=== PATIENT | female | born 1990 | race Caucasian/White ===

== ENCOUNTER 2022-11-04 12:45 | Emergency (ER) | payer OTHER, SELFPAY ==
[2022-11-04 12:46] VITALS: BP 159/106; PULSE 123; RESP 16; TEMP 36.6; O2SAT 97; BMI 25.0
--- NOTE | 2022-11-04 12:51 | NURSING ---
NO OLD EKGS
[2022-11-04 12:56] VITALS: BP 140/91; PULSE 101; RESP 19; O2SAT 98
--- NOTE | 2022-11-04 12:58 | ED.VIS.CHEST ---
HPI History of Present Illness Chief Complaint: Chest Pain [facility] Medical History (Updated 11/04/22 @ 15:[address] Nahum Trivedi, DO) Sliding hiatal hernia Allergy/AdvReac Type Severity Reaction Status Date / Time No Known Allergies Allergy Verified 11/04/22 12:48 Surgical History (Updated 11/04/22 @ 12:55 by Viry Robins) History of repair of ACL Social History Smoking Status: Never smoker EXAM Physical Exam Const Vital Signs: 11/04/22 12:46 11/04/22 12:52 11/04/22 12:56 Temperature 97.9 F Temperature Source Temporal Pulse Rate 123 H 101 H Respiratory Rate 16 19 H Respiratory Effort Normal Respiratory Pattern Normal Blood Pressure 159/106 H 140/91 H Blood Pressure Mean 123 107 Pulse Ox 97 98 Oxygen Delivery Method Room Air Room Air 11/04/22 13:40 11/04/22 13:40 11/04/22 14:00 Temperature Temperature Source Pulse Rate 70 70 Respiratory Rate 17 16 Respiratory Effort Respiratory Pattern Blood Pressure 140/93 H 133/86 H Blood Pressure Mean 108 101 Pulse Ox 98 Oxygen Delivery Method Room Air Room Air Room Air MDM MDM MDM Narrative Medical decision making narrative: HISTORY OF PRESENT ILLNESS: 32-year-old female here with chest pain.States she is been more fatigued dealing with reflux and chest pressure. Notes she felt palpitations at work she noted her heart rate is 130s then she presented to the emergency department. She notes symptoms are worse with lying flat. Notes they are worse after food. States this may be secondary to sliding hiatal hernia. The patient denies recent surgery in the last 4 weeks or immobilization in the last 3 days, denies previous diagnosis of DVT or PE, hemoptysis, unilateral leg swelling or malignancy with treatment the last 6 months. No estrogen use noted. Patient denies sudden onset of pain, no tearing sensation, no migratory symptoms, no new numbness, weakness or loss of sensation. Patient denies family history or personal history of Marfan syndrome or Lázaro-Danlos REVIEW OF SYSTEMS: Pertinent positives: Chest pain, palpitations, fatigue Pertinent negatives: Focal loss of sensation, syncope PHYSICAL EXAM: Nursing triage notes reviewed, Vital signs reviewed Constitutional: please see mdm HENT: MMM Eyes: Pupils equal round and reactive to light, Extraocular muscles intact Neck: No stridor, no JVD, full neck ROM Lungs: Clear to auscultation, No wheezing or rales. No increased work of breathing, no conversational dyspnea, no accessory muscle use, no nasal flaring. No respiratory distress noted Heart: Regular rate and rhythm, No murmurs, No rubs and No gallops, 2+ distal pulses (radial, femoral, posterior tibial) in all extremities Abdomen: Soft, there is no tenderness, rigidity, rebound or guarding, no obvious peritoneal signs, no palpable pulsatile abdominal masses, no auscultated abdominal bruit : No CVAT Extremities: No edema Neuro: No focal neurological deficits, cranial nerves II through XII intact, 5/5 strength in all extremities. Intact sensation to light touch in all extremities, 2+ reflexes bilateral patella tendons. Normal gait. No ataxia. Skin: No rash or lesions noted MEDICAL DECISION MAKING: Chief Complaint: Chest pain External records reviewed: No recent cardiac stress test catheterization or echocardiogram Factors affecting care: none Social determinants of health: none History obtained from others: none Consults: none ALL IMAGES (IF OBTAINED) HAVE BEEN PERSONALLY REVIEWED AND INTERPRETED BY MYSELF. EKG with normal sinus rhythm, normal axis, no intervals, no STEMI MDM Narrative: Patient was initially hypertensive and tachycardic (tachycardia improved without intervention). She was otherwise hemodynamically stable afebrile and nontoxic-appearing. I considered the following differential diagnosis: Arrhythmia, anemia, thyroid dysfunction, ACS, pneumonia, pneumothorax, PE I obtained a broad lab and imaging work-up to further elucidate the etiology the patient complaints. I suspect based on the patient's history of a sliding hiatal hernia pain is worse with lying flat and worse with food at this esophageal pathology. Gave Pepcid, Carafate for symptomatic relief. I also obtained a chest x-ray EKG troponin and basic labs to rule out additional diagnoses including thyroid dysfunction. Initial lab assessment was negative for the above-mentioned differential diagnoses. No clear life-limiting etiology could be identified. Encourage patient to follow-up as an outpatient for stress test and further confirmatory testing. PE less likely given low risk Wells score. Aortic dissection is thought to be less likely given no sudden ripping or tearing pain, migratory pain, palpable pulse inequalities, no focal neurologic deficits concurrent with chest pain. Chance of dissection less than 04/1999. Pericarditis less likely given no pathognomonic EKG changes (no diffuse ST elevations, [place] depressions). GI etiology (i.e. Boerhaave syndrome) less likely given no chest or neck crepitus, no vomiting or forced retching. I completed a HEART Score to screen for Major Adverse Cardiac Event (MACE) in this patient. The evidence indicates that the patient is very low risk for MACE and this is consistent with my clinical intuition. The risk of further workup or hospitalization for MACE is likely higher than the risk of the patient having a MACE. It is, therefore, in the patient?s best interest not to do additional emergent testing or to be hospitalized for MACE at this time. Shared Decision-Making No hospitalization indicated I have discussed with the patient my clinical impression and the result of the HEART Score to screen for MACE, as well as the risks of further testing and hospitalization. The HEART Score shows that the risk for MACE is less than 1%. Although the risk of MACE has not been completely eliminated, the risks of further testing or hospitalization for MACE likely exceed any potential benefit, and the patient agrees with not pursuing further emergent evaluation or hospitalization for MACE at this time. The patient and/or family, caregivers express understanding. The patient and/or family, caregivers agrees with the plan. Shared decision making: I will have a discussion with the patient and or visitors regarding risk/benefits of further testing or admission. They will be made aware of of the risk/benefits inherent in this decision they will be given the opportunity to voice understanding. Total critical care time today provided was at least 0 minutes. This excludes separately billable procedures. Critical care time (if documented) is secondary to the patient having high probability of clinically significant/life threatening deterioration in the patient's condition which required my urgent intervention. Lab Data Attestation: I reviewed the patient's lab results. Lab results narrative: CBC without leukocytosis, severe anemia, no thrombocytopenia. BMP without evidence of significant electrolyte abnormalities, no anion gap, no acute kidney injury. Troponin is negative, no evidence of myocardial ischemia TSH within normal limits Labs: Laboratory Results - last 24 hr 11/04/22 11/04/22 12:55 15:10 WBC 10.4 RBC 4.97 Hgb 14.3 Hct 42.2 MCV 84.9 MCH 28.8 MCHC 33.9 RDW Std Deviation 36.2 RDW Coeff of Eric 11.9 Plt Count 352 MPV 10.3 Immature Gran % (Auto) 0.300 Neut % (Auto) 60.9 Lymph % (Auto) 31.4 [place] % (Auto) 5.8 Eos % (Auto) 0.6 Baso % (Auto) 1.0 Absolute Neuts (auto) 6.4 Absolute Lymphs (auto) 3.27 Nucleated RBC % 0 Sodium 141 Potassium 3.5 Chloride 106 Carbon Dioxide 24.0 Anion Gap 11 BUN 11 Creatinine 1.11 H Estim Creat Clear Calc 67.48 Est GFR (MDRD) Af Amer 73 Est GFR (MDRD) Non-Af 60 BUN/Creatinine Ratio 9.9 L Glucose 103 Calcium 9.9 Troponin I High Sens 10 7 TSH 2.16 Radiography Chest X-Ray - ED: Read by ED Physician Diagnostic Testing: Clinical Impression(s) from Imaging Studies Chest X-Ray 11/04/22 13:00 IMPRESSION: No acute pulmonary process Electronically Signed: Tayo Broussard MD at 13:55 EDT Reading Location ID and State: [address] [place] [address] , Service support , I have personally reviewed the patient's chest x-ray. Chest x-ray is unremarkable for pulmonary edema, pneumothorax, pneumonia or focal cardiopulmonary abnormality. Discharge Plan Triage Chief Complaint: Chest Pain ED Provider: Nahum Trivedi Dx/Rx/DC Orders Clinical Impression: Tachycardia, Chest pain Instructions: Chest Pain [facility] Primary Care Provider: Care Physician,No Primary Referrals: Ricardo Rivas MD [Med Staff - Active Staff] - Activity Restrictions/Additional Instructions: Thank you for trusting us with your care today! Please take Tylenol (2 pills, 650 mg), ibuprofen (2 pills, 400 mg) every 6 hours as needed for pain and fever control. Please return to the emergency department if your symptoms change or worsen. Please follow with your primary care physician for further outpatient evaluation and management. Disposition Disposition: Home, Self Care
--- NOTE | 2022-11-04 13:00 | RAD_ITS ---
STUDY: X-RAY CHEST REASON FOR EXAM: Female, 32 years old. chest pain TECHNIQUE: Single AP portable view of the chest. COMPARISON: None. FINDINGS: EKG leads overlie the chest The lungs are clear and expanded. There is no demonstrated pleural abnormality. Normal size heart. Normal mediastinum and elijah. Normal visualized pulmonary arteries. Normal visualized aortic arch and descending thoracic aorta. Normal visualized thoracic spine. Normal visualized ribs, clavicles, and shoulders. There is no demonstrated abnormality of the visualized soft tissue structures of the upper abdomen. RAD/Chest 1 View (Portable) IMPRESSION: No acute pulmonary process Electronically Signed: Tayo Broussard MD at 13:55 EDT ,
[2022-11-04 13:12] LABS: Absolute Lymphocyte Count 3.27 X10^3/uL (0.83-4.51); Absolute Neutrophil Count 6.4 X10^3/uL (2.0-7.7); Eosinophil# 0.06 X10^3/uL; Eosinophils% 0.6 % (0-5); Hematocrit 42.2 % (37-47); Hemoglobin 14.3 g/dL (12.0-15.0); Lymphocyte # 3.27 X10^3/ul (0.83-4.51); Lymphocyte % 31.4 % (19-41); Mean Corp Hgb Conc 33.9 g/dL (32-36); Mean Corpuscular Hgb 28.8 pg (27.0-32.0); Mean Corpuscular Volume 84.9 fL (81-99); Mean Platelet Vol. 10.3 fl (6.2-12.0); Monocyte% 5.8 % (0-10); NRBC Flagged by Analyzer 0 % (0-5); Neutrophil # 6.35 X10^3/uL (2.7-7.7); Neutrophil % 60.9 % (47-70); Platelet Count 352 K/mm3 (150-450); RBC Distribution Width CV 11.9 % (11.6-14.6); RBC Distribution Width SD 36.2 fl (35.1-43.9); Red Blood Count 4.97 M/mm3 (4.2-5.4); White Blood Count 10.4 K/mm3 (4.4-11.0)
[2022-11-04 13:36] LABS: Anion Gap 11 (5-15); BUN 11 mg/dL (7-18); BUN/Creat Ratio 9.9 RATIO (10-20); Calcium,Total 9.9 mg/dL (8.5-10.1); Chloride 106 mmol/L (98-107); Creatinine, Serum 1.11 mg/dL (0.55-1.02); EST Glomerular Filtration Rate 60 mL/min (>60); Est Glom Filt Rate - Afr Amer 73 mL/min (>60); Estimated Creatinine Clearance 67.48 ml/min; Glucose 103 mg/dL (74-106); Potassium 3.5 mmol/L (3.5-5.1); Sodium Level 141 mmol/L (136-145); Thyroid Stim Hormone (TSH) 2.16 uIU/mL (0.358-3.74); Troponin-I HS (w/2H Reflex) 10 pg/mL (3.0-54.0)
[2022-11-04] MEDS: 0.9% Normal Saline 1,000 ML 1000 ML IV (13:37)
[2022-11-04 13:40] VITALS: BP 140/93; PULSE 70; RESP 17; O2SAT 98
[2022-11-04] MEDS: Sucralfate 1 GM Tablet PO (13:44)
[2022-11-04] MEDS: Famotidine 200 MG/20 ML MDV 20 MG in 0.9% Normal Saline (Pres. free 8 ML 300 MG IV (13:44)
[2022-11-04 14:00] VITALS: BP 133/86; PULSE 70; RESP 16
[2022-11-04 15:08] LABS: Reflex Troponin-HS? (from REC) Y
--- NOTE | 2022-11-04 15:32 | CM.ED ---
Social Work SW introduced self and role to patient. Pt listed as having no PCP; however, patient reports she has a PCP in [facility]. Julissa Ascencio [employer], INFANTRY ASS[employer]ULT[employer]
[2022-11-04 15:43] LABS: Troponin-I HS 7 pg/mL (3.0-54.0)
== END 2022-11-04 15:57 | disposition home or self-care (01) ==
PROVIDERS: Emergency Provider Emergency Medicine; Visit Provider Emergency Medicine
DX: R00.0 Tachycardia, unspecified (principal); R07.9 Chest pain, unspecified
CPT/HCPCS: 71045; 80048; 84443; 84484; 85025; 93005; 96361; 96374; 99284; J7030; A4216; J3490

== ENCOUNTER → 2023-01-04 | Outpatient (CLI) | payer OTHER, SELFPAY ==
--- NOTE | 2023-01-04 11:09 | EKG12_ITS ---
Test Reason : ROUTINE/CP Blood Pressure : / mmHG Vent. Rate : 068 BPM Atrial Rate : 068 BPM P-R Int : 108 ms QRS Dur : 082 ms QT Int : 408 ms P-R-T Axes : 039 064 023 degrees QTc Int : 433 ms Sinus rhythm with short AK Otherwise normal ECG Confirmed by DARCY ALAS, DAYA ([id number]), book editor KEO DRUMMOND ([id number]) on 01/05/2023 1:58:47 PM Referred By: COLIN LOZA Confirmed By:DAYA TAVERAS MD
--- NOTE | 2023-01-04 11:10 | ECHOD_ITS ---
Reason For Study: Palpitations Procedure This was a 2D Doppler, Color Flow transthoracic echocardiogram. Exam performed in department. Left Ventricle Normal LV size. Left ventricular systolic function is normal. The estimated ejection fraction is 63 %. Normal diastology for age. No regional wall motion abnormalities noted. Right Ventricle Normal RV size. Normal systolic function. Atria Normal left atrium. Normal right atrium. Mitral Valve Equivocal mitral valve prolapse. Tricuspid Valve Normal tricuspid valve. Mild tricuspid valve insufficiency. Aortic Valve Trisinus/trileaflet aortic valve. Pulmonic Valve Normal pulmonic valve. Great Vessels Normal aortic root. The pulmonary artery is normal size. Normal inferior vena cava. Pericardium/Pleural No pericardial effusion. MMode/2D Measurements & Calculations LVIDd: 4.8 cm IVSd: 0.75 cm Ao root diam: 2.6 cm LVIDs: 3.0 cm LVPWd: 0.76 cm RVDd: 2.8 cm FS: 37.9 % LAV(MOD-bp): 27.0 ml LVAd ap4: 22.8 cm2 SV(MOD-sp4): 35.7 ml LAV(MOD-bp) Indexed: 15.0 ml/m2 LVLd ap4: 7.6 cm LAV(MOD-sp2): 35.3 ml EDV(MOD-sp4): 57.0 ml LAV(MOD-sp4): 20.6 ml EDV(sp4-el): 58.3 ml LVAs ap4: 12.3 cm2 LVLs ap4: 6.1 cm ESV(MOD-sp4): 21.3 ml ESV(sp4-el): 21.0 ml EF(MOD-sp4): 62.7 % EF(sp4-el): 63.9 % SV(sp4-el): 37.3 ml LA A4 area: 10.7 cm2 LA dimension(2D): 3.2 cm RA A4 area: 7.4 cm2 TAPSE: 2.3 cm Time Measurements MV dec time: 0.15 sec Doppler Measurements & Calculations MV E max brian: 89.1 cm/sec Lat Peak E' Brian: 17.9 cm/sec Med Peak E' Brian: 11.4 cm/sec MV A max brian: 64.4 cm/sec E/E' lat: 5.0 E/E' med: 7.8 MV E/A: 1.4 Ao V2 max: 118.1 cm/sec LV V1 max: 115.2 cm/sec MV dec slope: 609.0 cm/sec2 Ao max P.6 mmHg LV V1 max P.3 mmHg Ao V2 mean: 81.7 cm/sec LV V1 mean P.7 mmHg Ao mean P.1 mmHg LV V1 mean: 76.2 cm/sec Ao V2 VTI: 25.6 cm LV V1 VTI: 24.5 cm AV (velocity ratio): 0.96 PA V2 max: 100.9 cm/sec TR max brian: 208.9 cm/sec TR max P.5 mmHg ECHO/Echo Complete Interpretation Summary Normal LV size. Left ventricular systolic function is normal. The estimated ejection fraction is 63 %. Mild tricuspid valve insufficiency. Normal diastology for age. Ordering Physician: COLIN LOZA Referring Physician: COLIN LOZA Performed By: Amna Trejo, FATEMEH, RVT
== END | disposition home or self-care (01) ==
LOC: CVS 11:08
DX: R00.2 Palpitations (principal)
CPT/HCPCS: 93005; 93306

== ENCOUNTER → 2023-11-01 | Outpatient (CLI) | payer OTHER, SELFPAY ==
[2023-11-01 07:24] LABS: AST(SGOT) 19 U/L (15-37); Alanine Aminotransfer ALT/SGPT 36 U/L (13-56); Albumin, Serum 3.5 g/dL (3.2-5.0); Alkaline Phosphatase 51 U/L (45-117); Anion Gap 5 (5-15); BUN 10 mg/dL (7-18); BUN/Creat Ratio 10.3 RATIO (10-20); Calcium,Total 8.9 mg/dL (8.5-10.1); Chloride 110 mmol/L (98-107); Creatinine, Serum 0.97 mg/dL (0.55-1.02); EST Glomerular Filtration Rate 69 mL/min (>60); Est Glom Filt Rate - Afr Amer 84 mL/min (>60); Globulin 3.4 g/dL (2.2-4.2); Glucose 95 mg/dL (74-106); Potassium 3.9 mmol/L (3.5-5.1); Protein, Total 6.9 g/dL (6.4-8.2); Sodium Level 138 mmol/L (136-145); Thyroid Stim Hormone (TSH) 2.15 uIU/mL (0.358-3.74)
== END | disposition home or self-care (01) ==
PROVIDERS: Visit Provider Nurse Practitioner Family
DX: E04.9 Nontoxic goiter, unspecified (principal); K76.0 Fatty (change of) liver, not elsewhere classified
CPT/HCPCS: 36415; 80053; 84439; 84443

== ENCOUNTER → 2024-02-09 | Outpatient (CLI) | payer OTHER, SELFPAY ==
--- NOTE | 2024-02-09 07:53 | US_ITS ---
STUDY: ABDOMINAL ULTRASOUND - RIGHT UPPER QUADRANT; ELASTOGRAPHY REASON FOR VISIT: Female, 33 years old. Fatty infiltration of the liver. TECHNIQUE: Ultrasound evaluation of the right upper quadrant was performed with real-time and static hansen-scale imaging. Point quantification shear wave elastography was performed (Ovelin). TECHNICAL QUALITY: Adequate. COMPARISON: None. FINDINGS: Liver: The liver measures 13.8 cm. There is increased echogenicity consistent with fatty infiltration. The bile ducts are within normal limits. There is hepatic color flow. The direction of portal flow is hepatopetal. There is no demonstrated mass lesion. Median liver stiffness measured 4.8 kPa. Gallbladder: Normal distended gallbladder. The gallbladder wall measures 2 mm. There is a negative sonographic Vann''s sign. There is no pericholecystic fluid. There are no gallstones. Sludge is seen within the gallbladder lumen. Common Bile Duct (C.B.D.): The common bile duct measures 2 mm. Pancreas: There is normal echogenicity of the visualized pancreas. There is no demonstrated pancreatic mass or cyst. Right Kidney: Normal size of the right kidney. The right kidney measures 10 cm x 5.2 cm x 4.1 cm. Normal renal cortex. The right cortex measures 1.5 cm. There is no demonstrated renal mass or cyst. There is no right hydronephrosis. US/ABD Limited w/ Elastography IMPRESSION: 1. Liver stiffness measures 4.8 kPa compatible with F0-F1 (Normal to mild liver fibrosis) Metavir score. 2. Sludge is seen within the gallbladder lumen. Electronically Signed: Zacarias Carney MD at 10:03 EDT ,
== END | disposition home or self-care (01) ==
LOC: US 07:52
PROVIDERS: Referring Provider Internal Medicine; Visit Provider Internal Medicine
DX: R79.89 Other specified abnormal findings of blood chemistry (principal); K76.0 Fatty (change of) liver, not elsewhere classified
CPT/HCPCS: 76705; 76981

== ENCOUNTER → 2024-02-14 | Outpatient (CLI) | payer OTHER, SELFPAY ==
--- OUTSIDE RECORDS SUMMARY | 2024-02-14 15:18 | XMS RPT_ITS | CCD ---
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 01-18-2008 Hepatitis B vaccination HEP B VACCINE (3 of 3 - 3-dose series) [facility] Start: 2007 Tetanus vaccination TETANUS [facility] Start: 2004 HIV screening HIV SCREENING DISCUSSI ON [facility] Start: 2001 Adolescent depressio n screening assessment Depression Screening (PHQ9) [facility] Start: 1994 COVID-19 VACCINE (1) COVID-19 VACCIN E (1) [facility] Start: 1992 History and physical examination, annual for health maintenance Wellness Visit [facility] Start: 1989 COVID-19 VACCINE (#1) COVID-19 VACCI NE (#1) [facility] Start: 1989 Hepatitis C antibody , confirmatory test HEPATITIS C VIRUS SCREENING [facility] Start: 1989 Hepatitis C screening HEPATITI S C VIRUS SCREENING [facility] Start: 1989 Screening for malignant neoplasm of cervix Pap Smear [facility] Start: 1989 Tetanus vaccination [facility] SURGICAL PATHOLOGY REQUEST SURGICAL PATHOLOGY REQUEST Surg Path Routine Gastroesophageal reflux disease without esophagitis Release Upon Ordering for 1 Occurrences starting 01/13/2023 [facility] Comment on above: Release Upon Orderin g for 1 Occurrences starting 01/13/2023 Immunizations Immunization Date Immunization Notes Care Provider Jennifer maddox 01-27-2023 influenza virus vaccine, unspecified formulation Myron Anguiano MD Work Phone: [facility] 01-31-2021 influenza virus vaccine, unspecified formulation Esme Horan SENIOR VICE PRESIDENT-CHURN DRILLER HELPER Work Phone: [facility] 05-16-2020 Moderna SARS-CoV-2 Vaccination Evita Lillie [facility] Comment on above: Result Comment: 2020: [id number] 04-18-2020 Moderna SARS-CoV-2 Vaccination Leslie Kimcaroline [facility] Comment on above: Result Comment: 2020: VIS DATE: 03/04/2020 01-17-2018 influenza virus vaccine, unspecified formulation LUZMARIA LOZA SENIOR VICE PRESIDENT-CHURN DRILLER HELPER [facility] 11-23-2007 hepatitis B pediatri c vaccine LUZMARIA LOZA SENIOR VICE PRESIDENT-CHURN DRILLER HELPER [facility] 09-13-2007 hepatitis B pediatri c vaccine LUZMARIA LOZA SENIOR VICE PRESIDENT-CHURN DRILLER HELPER [facility] 06-04-2000 measles/mumps/rubell a virus vaccine LUZMARIA LOZA SENIOR VICE PRESIDENT-CHURN DRILLER HELPER [facility] 07-22-1994 diphtheria, tetanus toxoids and acellular pertussis vaccine LUZMARIA LOZA SENIOR VICE PRESIDENT-CHURN DRILLER HELPER [facility] 07-22-1994 poliovirus vaccine, inactivated LUZMARIAGUNJAN LOZA SENIOR VICE PRESIDENT-CHURN DRILLER HELPER [facility] 12-12-1990 diphtheria, tetanus toxoids and acellular pertussis vaccine LUZMARIAGUNJAN LOZA SENIOR VICE PRESIDENT-CHURN DRILLER HELPER [facility] 12-12-1990 haemophilus influenz ae type b vaccine, PRP-T conjugate LUZMARIA LOZA SENIOR VICE PRESIDENT-CHURN DRILLER HELPER [facility] 12-12-1990 poliovirus vaccine, inactivated LUZMARIA LOZA SENIOR VICE PRESIDENT-CHURN DRILLER HELPER [facility] 08-23-1990 measles/mumps/rubell a virus vaccine LUZMARIAGUNJAN LOZA SENIOR VICE PRESIDENT-CHURN DRILLER HELPER [facility] 1989 diphtheria, tetanus toxoids and acellular pertussis vaccine LUZMARIAGUNAJN LOZA SENIOR VICE PRESIDENT-CHURN DRILLER HELPER [facility] 1989 diphtheria, tetanus toxoids and acellular pertussis vaccine LUZMARIAGUNJAN LOZA SENIOR VICE PRESIDENT-CHURN DRILLER HELPER [facility] 1989 poliovirus vaccine, inactivated LUZMARIAGUNJAN LOZA SENIOR VICE PRESIDENT-CHURN DRILLER HELPER [facility] 1989 diphtheria, tetanus toxoids and acellular pertussis vaccine, unspecified formulation LUZMARIAGUNJAN LOZA SENIOR VICE PRESIDENT-CHURN DRILLER HELPER [facility] 1989 poliovirus vaccine, inactivated LUZMARIAGUNJAN LOZA SENIOR VICE PRESIDENT-CHURN DRILLER HELPER [facility] Payers Date Payer Category Payer [employer] others[employer] [id number] 2022 [employer] [id number] 2022 [facility] [id number] 2021 [employer] ( [employer] others) [facility] [id number] 2021-Present [address] [place] [address] [id number] 2021 [employer] ( and others) [id number] 2019 Unknown [facility] xxxxxxxxx 2019-Present xxxxxxxxx [id number] 2017 Unknown [id number] 1989 Unknown [id number] [id number] .2.903 1989 Unknown [id number] [id number] .2.900 1989 Unknown [id number] 2.16.840.1.912087.3.579 .2.903 1989 Unknown [id number] [id number] .2.627 1989 Unknown [id number] [id number] .2.983 1989 Unknown [id number] [id number] .2.983 1989 Unknown [id number] 2.16.840.1.810529.3.579 .2.983 1989 Unknown [id number] [id number] .2.983 1989 Unknown [id number] 2.16.840.1.505483.3.579 .2.983 1989 Unknown [id number] [id number] .2.983 1989 Unknown [id number] [id number] .2.983 Social History Date Type Detail Facility Start: 05-18-2019 Tobacco smoking stat us HIIS Unknown if ever smoked [facility] Start: 1989 Sex Assigned At Not on file [facility] Exposure to SARS-CoV -2 (event) Yes [facility] Exposure to SARS-CoV -2 (event) Unable to assess [facility] Start: 02-03-2021 End: 12-17-2022 Tobacco smoking status NHIS Never smoked tobacco [facility] Start: 02-03-2021 End: 12-17-2022 Tobacco use and exposure Smokeless tobacco non-user [facility] Start: 05-26-2021 End: 01-11-2024 Alcohol intake Current drinker of alcohol (finding) [facility] Start: 02-03-2021 History SDOH Alcohol Comment occ [facility] Sex Assigned At Female [facility] Start: 12-17-2022 End: 01-03-2024 History of Social function [facility] Start: 12-17-2022 End: 01-03-2024 Tobacco use panel [facility] Clinical Notes 05-26-2021 to 01-18-2024 Tomasz Carrero [...] Myron Anguiano MD documented in this encounter [facility] 01-11-2024 History of Present illness Narrative Associated [...] Myron Anguiano MD documented in this encounter [facility] 01-03-2024 History of Present illness Narrative Chief [...] Myron Anguiano MD documented in this encounter [facility] 10-28-2023 Evaluation + Plan note Diagnostic Tests PendingHPV Screen, DNA Probe 10/28/23 Future Scheduled TestsThyroid Stimulating Hormone 10/28/23Free T4 10/28/23Complete Metabolic Panel 10/28/23US Elastography Liver Only 10/28/23 [facility] 09-02-2023 History of Present illness Narrative Nurse [...] Following IV injection of 4.2 mCi of [id number], anterior imaging of the abdomen was acquired [...] a cholecystectomy Laura Story MD General Surgery [place] [address] Office - [phone] Fax - [phone] documented in this encounter [facility] 02-04-2023 History of Present illness Narrative Nurse [...] are completed. Laura Story MD General Surgery [place] [address] Office - [phone] Fax - [phone] documented in this encounter [facility] 01-25-2023 History of Present illness Narrative Associated [...] Myron Anguiano MD documented in this encounter [facility] 01-19-2023 History of Present illness Narrative Associated [...] Myron Anguiano MD documented in this encounter [facility] 01-13-2023 Nurse Note Patient out of bathroom; [...] Patient to recovery bay 4, family at [facility]; patient sedated, not responding to stimuli at this time; skin pink, warm and dry, respirations easy and unlabored; no evidence of pain noted; call light with patient and side rails up x 2. documented in this encounter [facility] 01-13-2023 Nurse Surgical operation note Patient out of bathroom; ambulates to wheelchair for discharge. [facility] 01-13-2023 Nurse Surgical operation note Patient ambulates slowly and steadily to bathroom. Instructed to use red call cord if needs assistance. Voices understanding. T [facility] 01-13-2023 Nurse Surgical operation note IV discontinued with angiocath intact; no redness or edema noted a site; pressure drsg applied to site; patient tolerated procedure well and is getting dressed for discharge home. T [facility] 01-13-2023 Nurse Surgical operation note Dr. Story returns to bedside; spending time speaking with patient and patient's her spouse, provides post procedure diagnosis, treatment provided and treatment recommended, answering questions and reviewing photos. T [facility] 01-13-2023 Nurse Surgical operation note Patient assisted [...] stop back in and speak with patient. [facility] 01-13-2023 Nurse Surgical operation note Patient alert, HOB elevated; patient taking nourishment of starry soda and peanut butter crackers, per patient request; patient denies difficulty swallowing, pain or nausea. [facility] 01-13-2023 Nurse Surgical operation note Patient more alert, opens eyes to name and answers questions appropriately. [facility] 01-13-2023 Nurse Surgical operation note Dr. Story here speaking with patient's family, provides post procedure diagnosis, treatment provided and treatment recommended. [facility] 01-13-2023 Nurse Surgical operation note Patient to recovery bay 4, family at [facility]; patient sedated, not responding to stimuli at this time; skin pink, warm and dry, respirations easy and unlabored; no evidence of pain noted; call light with patient and side rails up x 2. [facility] 01-13-2023 History and physical note ENDOSCOPIC PREPROCEDURE HISTORY AND PHYSICAL HISTORY OF PRESENT ILLNESS: Kinjal Hutchinson is a 32 y.o. female seen in the pre-procedure area at [facility]. The indication for endoscopic evaluation includes: [...] using Monitored Anesthesia Care. Laura Story MD [facility] 01-13-2023 History and physical note ENDOSCOPIC PREPROCEDURE HISTORY AND PHYSICAL HISTORY OF PRESENT ILLNESS: Kinjal Hutchinson is a 32 y.o. female seen in the pre-procedure area at [facility]. The indication for endoscopic evaluation includes: [...] Laura Story MD documented in this encounter [facility] 01-13-2023 Nurse Note Clip down scope to bx site. 1 clip deployed. [facility] 01-13-2023 Miscellaneous Notes Clip down scope to bx site. 1 clip deployed. Biopsy forceps down scope. See anesthesia record for vital signs and meds given during the procedure. documented in this encounter [facility] 01-13-2023 Nurse Note Biopsy forceps down scope. [facility] 01-13-2023 Nurse Note See anesthesia record for vital signs and meds given during the procedure. [facility] 01-12-2023 History of Present illness Narrative Associated [...] Myron Anguiano MD documented in this encounter [facility] 01-05-2023 History of Present illness Narrative Chief [...] Myron Anguiano MD documented in this encounter [facility] 12-17-2022 History of Present illness Narrative Nurse [...] Nausea/Vomiting. denies Constipation/Diarrhea. documented in this encounter [facility] 12-17-2022 Instructions Parisa Armijo LPN - 12/17/2022 1:00 PM EDT EGD INSTRUCTIONS Your EGD is scheduled at [facility] on Wednesday01/13/23. The hospital will call [...] cannot be sent through Care Everywhere.EGD ([facility]) ([facility])documented in this encounter [facility] 01-13-2022 History of Present illness Narrative Associated [...] Patient was seen and evaluated with the CHURN DRILLER HELPER or AT/OTC at today's visit. I performed all essential elements of the history and physical exam at today's visit. I have confirmed the diagnosis at today's visit. I have determined the plan of care for today's visit. Please refer to the CHURN DRILLER HELPER or AT/OTC's note for further details from [...] prepped with alcohol. documented in this encounter [facility] 01-05-2022 History of Present illness Narrative Associated [...] prepped with alcohol. documented in this encounter [facility] 12-29-2021 History of Present illness Narrative Chief [...] Myron Anguiano MD documented in this encounter [facility] 06-16-2021 History of Present illness Narrative Chief [...] prepped with alcohol. documented in this encounter [facility] 06-02-2021 History of Present illness Narrative Patient was seen and evaluated with the CHURN DRILLER HELPER or AT/OTC at today's visit. I performed all essential elements of the history and physical exam at today's visit. I have confirmed the diagnosis at today's visit. I have determined the plan of care for today's visit. Please refer to the CHURN DRILLER HELPER or AT/OTC's note for further details from [...] prepped with alcohol. documented in this encounter [facility] 05-26-2021 History of Present illness Narrative Chief [...] or concerns meantime. documented in this encounter [facility] Evaluation + Plan note Future Appointments Appointment Date:01/24/2022 03:00:00 PM Scheduled Provider: Location:[facility] Appointment Type:US Thyroid Future Scheduled TestsUS Thyroid 01/24/22 [facility] Evaluation note Diagnosis Primary osteoarthritis of left knee- Primary Primary localized osteoarthrosis, lower leg [facility] Primary osteoarthritis of left knee- Primary Primary localized osteoarthrosis, lower leg [facility] Diagnosis Primary osteoarthritis of left knee- Primary Primary localized osteoarthrosis, lower leg [facility] Diagnosis Gastroesophageal reflux disease without esophagitis- Primary Esophageal reflux [facility] Diagnosis Primary osteoarthritis of left knee- Primary Primary localized osteoarthrosis, lower leg [facility] Diagnosis Gastroesophageal reflux disease without esophagitis Esophageal reflux [facility] Diagnosis Primary osteoarthritis of left knee- Primary Primary localized osteoarthrosis, lower leg [facility] Diagnosis Primary osteoarthritis of left knee- Primary Primary localized osteoarthrosis, lower leg [facility] Diagnosis Abdominal pain, acute Abdominal pain, unspecified site [facility] Diagnosis Abdominal pain, acute Abdominal pain, unspecified site [facility] Diagnosis Hepatic steatosis- Primary Other chronic nonalcoholic liver disease Gallbladder sludge Calculus of gallbladder without mention of cholecystitis or obstruction [facility] Narrative No data available for this section [facility] Hospital Discharge instructions No data available for this section [facility] Progress note No data available for this section [facility] Summary Purpose Family History No Family History Records FoundNo Family History Records FoundNo Family History Records FoundNo Family History Records FoundNo Family History Records Found No data available for this section No Family History Records FoundNo Family History Records Found Advance Directives Documents on File Type Date Recorded 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 The patient reports no mechanical symptoms. She [...] medications, and allergies werereviewed today in the [facility] system and confirmed. Social History: Social History [...] US ABDOMEN RUQ/LIVER/GB Laura Story MD [address] [place] [id number] Referral ID Status Reason Start Date Expiration Date V isits Requested Visits Authorized [id number] New Request 02/04/2023 02/29/2024 1 1 Specialty Diagnoses / Procedures Referred By Contac t Referred To Contact Diagnoses Abdominal pain, acute Procedures NUC HEPATOBILIARY WITH EJECTION FRACTION [facility] GB W/PHARMA INTERVENJ Laura Story MD [address] [place] [address] Referral ID Status Reason Start Date Expiration Date V isits Requested Visits Authorized [id number] New Request 02/04/2023 02/29/2024 1 1 Specialty Diagnoses / Procedures Referred By Contac t Referred To Contact Diagnoses Gastroesophageal reflux disease without esophagitis Procedures DIAGNOSTIC UPPER ENDOSCOPY AZ ESOPHAGOGASTRODUODENOSCOPY TRANSORAL DIAGNOSTIC Laura Story MD [address] [place] [address] Referral ID Status Reason Start Date Expiration Date Visits Re quested Visits Authorized [id number] Closed 12/18/2022 01/12/2024 1 1 Additional Source Comments INFORMATION SOURCE (unrecogn ized section and content) DATE CREATED AUTHOR 10/11/[address] [facility] DATE CREATED AUTHOR AUTHOR'S ORGANIZ ATION 05/16/2019 [facility] DATE CREATED AUTHOR AUTHOR'S ORGANIZ ATION 05/17/2019 [facility] DATE CREATED AUTHOR AUTHOR'S ORGANIZ ATION 02/19/2021 [facility] DATE CREATED AUTHOR AUTHOR'S ORGANIZ ATION 01/21/2022 [facility] DATE CREATED AUTHOR AUTHOR'S ORGANIZ ATION 11/20/2023 [facility] ([place] DATE CREATED AUTHOR AUTHOR'S ORGANIZ ATION 01/31/2024 [facility] Reason for Visit (unrecogniz ed [...] disease without esophagitis Procedures DIAGNOSTIC UPPER ENDOSCOPY AZ ESOPHAGOGASTRODUODENOSCOPY TRANSORAL DIAGNOSTIC Laura Story MD [address] [place] [address] Referral ID Status Reason Start Date Expiration Date Visits Re quested Visits Authorized [id number] Closed 12/18/2022 01/12/2024 1 1 Reason Comments [...] US ABDOMEN RUQ/LIVER/GB Laura Story MD [address] [place] [phone] Referral ID Status Reason Start Date Expiration Date Visits Re quested Visits Authorized [id number] Closed 02/04/2023 02/29/2024 1 1 Specialty Diagnoses / Procedures Referred By Contac t Referred To Contact Diagnoses Abdominal pain, acute Procedures NUC HEPATOBILIARY WITH EJECTION FRACTION [place] [facility]PAT[facility] GB W/PHARMA INTERVENJ Laura Story MD [address] [place] [address] Referral ID Status Reason Start Date Expiration Date Visits Re quested Visits Authorized [id number] Closed 02/04/2023 02/29/2024 1 1 Reason Comments [...] Care Teams (unrecognized sec tion and content) Tree Deadener Relationship Specialty Start Date End Date Luzmaria Loza CNP [address] [place] [place] [phone] PCP - General Nurse Practitioner - Family 01/31/21 Tree Deadener Relationship Specialty Start Date End Date Luzmaria Loza CNP [address] [place] [place] [phone] PCP - General Nurse Practitioner - Family 01/31/21 Tree Deadener Relationship Specialty Start Date End Date Luzmaria Loza CNP [address] [place] [id number] PCP - General Nurse Practitioner - Family 01/31/21 Tree Deadener Relationship Specialty Start Date End Date Luzmaria Loza CNP [address] [place] [id number] PCP - General Nurse Practitioner - Family 01/31/21 Tree Deadener Relationship Specialty Start Date End Date Luzmaria Loza CNP [address] [place] [id number] PCP - General Nurse Practitioner - [facility] 01/31/21 Tree Deadener Relationship Specialty Start Date End Date Luzmaria Loza CNP [address] [place] [id number] PCP - General Nurse Practitioner - [facility] 01/31/21 Tree Deadener Relationship Specialty Start Date End Date Luzmaria Loza CNP [address] [place] [id number] PCP - General Nurse Practitioner - [facility] 01/31/21 Tree Deadener Relationship Specialty Start Date End Date Luzmaria Loza CNP [address] [place] [id number] PCP - General Nurse Practitioner - [facility] 01/31/21 Tree Deadener Relationship Specialty Start Date End Date Luzmaria Loza CNP [address] [place] [phone] PCP - General Nurse Practitioner - Family 01/31/21 Tree Deadener Relationship Specialty Start Date End Date Luzmaria Loza CNP [address] [place] [id number] PCP - General Nurse Practitioner - Family 01/31/21 Tree Deadener Relationship Specialty Start Date End Date Luzmaria Loza CNP [address] [place] [phone] PCP - General Nurse Practitioner - Family 01/31/21 Care Team (unrecognized sect ion and content) Care Team Personnel Name: LUZMARIA LOZA APRN-CONY Position: P4 Advanced Practice Nurse Med Service: Active Provider Member Role: Primary Care Physician Address: Address: [address] [facility] [address] [place], [place] [address] Care Team Related Persons Name: MIGUEL ÁNGEL HUTCHINSON Address: [address] [phone] FOR RECORDS PERTAINING TO PATIENTS WHO ARE [...] BE BASED ON THE PRIMARY CLINICAL RECORDS. [facility] [employer] provides no warranty or guarantee of the accuracy or completeness of information in this document.
== END | disposition home or self-care (01) ==
LOC: PSN 12:43
PROVIDERS: PCP Nurse Practitioner Family; Referring Provider Internal Medicine Cardiovascular Disease; Visit Provider Internal Medicine Cardiovascular Disease
DX: R00.2 Palpitations (principal); R00.1 Bradycardia, unspecified; I49.3 Ventricular premature depolarization
CPT/HCPCS: 93225; 93226

== ENCOUNTER → 2024-02-14 | Outpatient (CLI) | payer OTHER, SELFPAY ==
[2024-02-14 13:03] LABS: Absolute Lymphocyte Count 2.46 X10^3/uL (0.83-4.51); Absolute Neutrophil Count 4.2 X10^3/uL (2.0-7.7); Basophil# 0.09 X10^3/uL; Basophil% 1.2 % (0-1); Eosinophil# 0.07 X10^3/uL; Eosinophils% 0.9 % (0-5); Hematocrit 41.3 % (37-47); Hemoglobin 13.8 g/dL (12.0-15.0); Lymphocyte # 2.46 X10^3/ul (0.83-4.51); Lymphocyte % 33.3 % (19-41); Mean Corp Hgb Conc 33.4 g/dL (32-36); Mean Corpuscular Hgb 27.9 pg (27.0-32.0); Mean Corpuscular Volume 83.6 fL (81-99); Mean Platelet Vol. 10.8 fl (6.2-12.0); Monocyte# 0.56 X10^3/uL; Monocyte% 7.6 % (0-10); NRBC Flagged by Analyzer 0 % (0-5); Neutrophil % 56.9 % (47-70); Platelet Count 329 K/mm3 (150-450); RBC Distribution Width SD 36.4 fl (35.1-43.9); Red Blood Count 4.94 M/mm3 (4.2-5.4); White Blood Count 7.4 K/mm3 (4.4-11.0)
[2024-02-14 13:33] LABS: Anion Gap 8 (5-15); BUN 11 mg/dL (7-18); BUN/Creat Ratio 12.7 RATIO (10-20); Calcium,Total 9.3 mg/dL (8.5-10.1); Chloride 107 mmol/L (98-107); Creatinine, Serum 0.86 mg/dL (0.55-1.02); EST Glomerular Filtration Rate 79 mL/min (>60); Est Glom Filt Rate - Afr Amer 96 mL/min (>60); Glucose 100 mg/dL (74-106); Potassium 3.8 mmol/L (3.5-5.1); Sodium Level 140 mmol/L (136-145)
--- OUTSIDE RECORDS SUMMARY | 2024-02-14 14:35 | XMS RPT_ITS | CCD ---
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 MG/2ML Patient tolerance: patient tolerated the procedure well with no immediate complications Consent: Consent was obtained prior to the procedure after discussion of the risks, benefits and alternatives, and expected outcomes were discussed with the patient. The possibilities of reaction to medication, bleeding, infection, the need for additional procedures, failure to diagnosis a condition, and creating a complication requiring operation were discussed with the patient. The patient concurred with the proposed plan, giving consent. Preparation: Patient was prepped in the usual sterile fashion. The patient was prepped with alcohol. [facility] LARGE JOINT/BURSA INJECTION AND/OR ASPIRATION: L kneeon 01-19-2023 Tomasz Carrero ATC 02/03/2023 4:24 PM LARGE JOINT/BURSA INJECTION AND/OR ASPIRATION: L knee Date/Time: 01/19/2023 11:10 AM Performed by: Myron Anguiano MD Authorized by: Myron Anguiano MD Supporting Documentation Indications: pain and osteoarthritis Procedure Details: Location: knee - L knee Local Anesthetic: ethyl chloride (cold spray) Needle size: 22 G Approach: anterolateral Medication Verification: I have personally verified and performed the final check of the medication(s) used in this procedure prior to administration. The following items were included during the verification process for medication(s) administered: drug name, strength, volume, expiration, physical integrity and appearance of the medication(s). Medications administered: 20 mg Sodium Hyaluronate (Viscosup) 20 MG/2ML Patient tolerance: patient tolerated the procedure well with no immediate complications Consent: Consent was obtained prior to the procedure after discussion of the risks, benefits and alternatives, and expected outcomes were discussed with the patient. The possibilities of reaction to medication, bleeding, infection, the need for additional procedures, failure to diagnosis a condition, and creating a complication requiring operation were discussed with the patient. The patient concurred with the proposed plan, giving consent. Preparation: Patient was prepped in the usual sterile fashion. The patient was prepped with alcohol. [facility] LARGE JOINT/BURSA INJECTION AND/OR ASPIRATION: L kneeon 01-16-2023 Radiology Study observation (narrative) [facility] DIAGNOSTIC UPPER ENDOSCOPYon 01-13-2023 [facility] Patient Name: Kinjal Hutchinson Procedure Date: 01/13/2023 9:22 AM Date of : 1990 Admit Type: Outpatient Age: 32 Room: Procedure Room #2 Gender: Female Note Status: Finalized Attending MD: Laura Story MD, [id number] Instrument Name: [id number] Procedure: Upper GI endoscopy Attending Participation: I personally performed the entire procedure. Indications: Heartburn, Suspected esophageal reflux, Abnormal CT of the GI tract Providers: Laura Story MD Referring MD: LUZMARIA LOZA CNP Complications: No immediate complications. Estimated blood loss: Minimal. Estimated Blood Loss: Estimated blood loss was minimal. Medicines: See the Anesthesia note for documentation of the administered medications Procedure: Pre-Anesthesia Assessment: - Prior to the procedure, a History and Physical was performed, and patient medications and allergies were reviewed. The risks and benefits of the procedure and the sedation options and risks were discussed with the patient. All questions were answered and informed consent was obtained. Patient identification and proposed procedure were verified by the physician, the nurse, the automobile insurance claim examiner and the hydro technician in the pre-procedure area in the endoscopy suite. Mental Status Examination: normal. Airway Examination: Mallampati Class II (the uvula but not tonsillar pillars visualized). Respiratory Examination: clear to auscultation. CV Examination: normal. Prophylactic Antibiotics: The patient does not require prophylactic antibiotics. Prior Anticoagulants: The patient has taken no anticoagulant or antiplatelet agents. ASA Grade Assessment: II - A patient with mild systemic disease. After reviewing the risks and benefits, the patient was deemed in satisfactory condition to undergo the procedure. The anesthesia plan was to use moderate sedation / analgesia (conscious sedation). Immediately prior to administration of medications, the patient was re-assessed for adequacy to receive sedatives. The physical status of the patient was re-assessed after the procedure. After obtaining informed consent, the endoscope was passed under direct vision. Throughout the procedure, the patient's blood pressure, pulse, and oxygen saturations were monitored continuously. CO2 was used. The Endoscope was introduced through the mouth, and advanced to the second part of duodenum. The upper GI endoscopy was accomplished without difficulty. The patient tolerated the procedure well. Findings: The Z-line was regular and was found 41 cm from the incisors. Bilious fluid was found on the greater curvature of the stomach. Localized mild inflammation with hemorrhage characterized by erythema was found in the prepyloric region of the stomach. Biopsies were taken with a cold forceps for Helicobacter pylori testing. The second portion of the duodenum was normal. The gastroesophageal flap valve was visualized endoscopically and classified as Hill Grade II (fold present, opens with respiration). Impression: - Z-line regular, 41 cm from the incisors. - Bilious gastric fluid. - Chronic bile gastritis with hemorrhage. Biopsied. - Normal second portion of the duodenum. - Gastroesophageal flap valve classified as Hill Grade II (fold present, opens with respiration). Recommendation: - Patient has a contact number available for emergencies. The signs and symptoms of potential delayed complications were discussed with the patient. Return to normal activities tomorrow. Written discharge instructions were provided to the patient. - Written discharge instructions were provided to (more content not included)... LAB, [facility] Radiology Study observation (narrative) [facility] HCG ( test) Ql (U)o n 01-13-2023 HCG.beta subunit [Moles/Vol] Negative [facility] Comment on above: Lot: [id number]; EXP : 2023-12-24; [facility]AR[facility]INT/BURSA INJECTION AND/OR ASPIRATION: [place] kneemelinda 01-12-2023 Tomasz Carrero, AMISHA 01/16/2023 10:12 AM LARGE JOINT/BURSA INJECTION AND/OR ASPIRATION: L knee Date/Time: 01/12/2023 11:10 AM Performed by: Myron Anguiano MD Authorized by: Myron Anguiano MD Supporting Documentation Indications: pain and osteoarthritis Procedure Details: Location: knee - L knee Local Anesthetic: ethyl chloride (cold spray) Needle size: 22 G Approach: anterolateral Medication Verification: I have personally verified and performed the final check of the medication(s) used in this procedure prior to administration. The following items were included during the verification process for medication(s) administered: drug name, strength, volume, expiration, physical integrity and appearance of the medication(s). Medications administered: 20 mg Sodium Hyaluronate (Viscosup) 20 MG/2ML Patient tolerance: patient tolerated the procedure well with no immediate complications Consent: Consent was obtained prior to the procedure after discussion of the risks, benefits and alternatives, and expected outcomes were discussed with the patient. The possibilities of reaction to medication, bleeding, infection, the need for additional procedures, failure to diagnosis a condition, and creating a complication requiring operation were discussed with the patient. The patient concurred with the proposed plan, giving consent. Preparation: Patient was prepped in the usual sterile fashion. The patient was prepped with alcohol. [facility] LARGE JOINT/BURSA INJECTION AND/OR ASPIRATION: Davidson kneeon 01-27-2022 Radiology Study observation (narrative) [facility] LABORATORYOrdered By: Brit Sosa on 01-16-2022 Albumin BCP dye [Mass/Vol] 4.1 G/dL Invalid Interpretation Code 3.5 - 5.0 G/dL AO ADM SS Albumin/Globulin [Mass ratio] 1.2 {ratio} Invalid Interpretation Code 1.1 - 2.5 ratio AO ADM SS ALP [Catalytic activity/Vol] 60 U/L Invalid Interpretation Code 40 - 135 U/L AO ADM SS ALT With P-5'-P [Catalytic activity/Vol] 21 U/L Invalid Interpretation Code 14 - 59 U/L AO ADM SS AST With P-5'-P [Catalytic activity/Vol] 19 U/L Invalid Interpretation Code 10 - 40 U/L AO ADM SS Bilirubin [Mass/Vol] 0.3 mg/dL Invalid Interpretation Code 0.2 - 1.0 mg/dL AO ADM SS Calcium [Mass/Vol] 9.7 mg/dL Invalid Interpretation Code 8.4 - 10.2 mg/dL AO ADM SS Chloride [Moles/Vol] 103 mmol/L Invalid Interpretation Code 98 - 107 mmol/L AO ADM SS Cholesterol [Mass/Vol] 159 mg/dL Invalid Interpretation Code 0 - 200 mg/dL AO ADM SS Cholesterol in HDL [Mass/Vol] 74 mg/dL Invalid Interpretation Code 40 - 60 mg/dL AO ADM SS Cholesterol in LDL [Mass/Vol] 52 mg/dL Invalid Interpretation Code 0 - 130 mg/dL AO ADM SS CO2 [Moles/Vol] 29 mmol/L Invalid Interpretation Code 22 - 29 mmol/L AO ADM SS Creatinine [Mass/Vol] 0.90 mg/dL Invalid Interpretation Code 0.55 - 1.02 mg/dL AO ADM SS Electrolyte Balance 10.0 mEq/L Invalid Interpretation Code 4.0 - 15.0 mEq/L AO ADM SS Free T4 [Mass/Vol] 1.06 ng/dL Invalid Interpretation Code 0.76 - 1.46 ng/dL AO ADM SS Globulin 3.4 G/dL Invalid Interpretation Code AO ADM SS Glucose [Mass/Vol] 67 mg/dL Invalid Interpretation Code 70 - 105 mg/dL AO ADM SS HbA1c (Bld) [Mass fraction] 5.2 % Invalid Interpretation Code 4.3 - 6.4 % AO ADM SS Potassium [Moles/Vol] 4.4 mmol/L Invalid Interpretation Code 3.5 - 5.1 mmol/L AO ADM SS Protein [Mass/Vol] 7.5 G/dL Invalid Interpretation Code 6.4 - 8.2 G/dL AO ADM SS Sodium [Moles/Vol] 142 mmol/L Invalid Interpretation Code 136 - 145 mmol/L AO ADM SS Triglyceride [Mass/Vol] 166 mg/dL Invalid Interpretation Code 0 - 150 mg/dL AO ADM SS TSH Qn 1.22 m[IU]/L Invalid Interpretation Code 0.36 - 3.74 mcIU/mL AO ADM SS Urea nitrogen [Mass/Vol] 9 mg/dL Invalid Interpretation Code 7 - 18 mg/dL AO ADM SS Urea nitrogen/Creatinine [Mass ratio] 10 ratio Invalid Interpretation Code 7 - 27 ratio AO ADM SS Vit. D 25-Hydroxy 66.8 ng/mL Invalid Interpretation Code AO ADM SS LABORATORYOrdered By: Emilia Swartz on 01-16-2022 Basophil, Absolute 0.1 103/mcL Invalid Interpretation Code 0.0 - 0.2 10^3/mcL AO Workflow SS Basophils/100 WBC (Bld) 1.2 % Invalid Interpretation Code 0.0 - 2.5 % AO Workflow SS Eosinophil, Absolute 0.1 103/mcL Invalid Interpretation Code 0.0 - 0.4 10^3/mcL AO Workflow SS Eosinophils/100 WBC (Bld) 1.5 % Invalid Interpretation Code 0.0 - 7.0 % AO Workflow SS Erythrocyte distribution width (RBC) [Ratio] 12.4 % Invalid Interpretation Code 11.5 - 14.5 % AO Workflow SS Hematocrit (Bld) [Volume fraction] 40.5 % Invalid Interpretation Code 37.0 - 47.0 % AO Workflow SS Hemoglobin (Bld) [Mass/Vol] 13.9 G/dL Invalid Interpretation Code 12.0 - 16.0 G/dL AO Workflow SS Lymphocyte, Absolute 2.8 103/mcL Invalid Interpretation Code 0.8 - 3.9 10^3/mcL AO Workflow SS Lymphocytes/100 WBC (Bld) 33.7 % Invalid Interpretation Code 10.0 - 50.0 % AO Workflow SS MCH (RBC) [Entitic mass] 28.6 pg Invalid Interpretation Code 27.0 - 31.2 pg AO Workflow SS MCHC 34.3 G/dL Invalid Interpretation Code 33.0 - 37.0 G/dL AO Workflow SS MCV (RBC) [Entitic vol] 83.3 fL Invalid Interpretation Code 80.0 - 94.0 fL AO Workflow SS Monocyte, Absolute 0.5 103/mcL Invalid Interpretation Code 0.2 - 1.0 10^3/mcL AO Workflow SS Monocytes/100 WBC (Bld) 6.0 % Invalid Interpretation Code 1.7 - 13.0 % AO Workflow SS Neutrophil, Absolute 4.9 103/mcL Invalid Interpretation Code 2.9 - 6.2 10^3/mcL AO Workflow SS Neutrophils/100 WBC (Bld) 57.6 % Invalid Interpretation Code 37.0 - 80.0 % AO Workflow SS Platelet mean volume (Bld) [Entitic vol] 9.5 fL Invalid Interpretation Code 7.4 - 10.4 fL AO Workflow SS Platelets (Bld) [#/Vol] 323 103/mcL Invalid Interpretation Code 130 - 400 10^3/mcL AO Workflow SS RBC (Bld) [#/Vol] 4.86 106/mcL Invalid Interpretation Code 4.20 - 5.40 10^6/mcL AO Workflow SS WBC (Bld) [#/Vol] 8.4 103/mcL Invalid Interpretation Code 4.6 - 10.8 10^3/mcL AO Workflow SS LABORATORYOrdered By: SYSTEM SYSTEM on 01-16-2022 GFR 88 ml/min/1.73sqm Invalid Interpretation Code AO Chemistry S GFR Non- 73 ml/min/1.73sqm Invalid Interpretation Code AO Chemistry S T3 [Mass/Vol] 143 ng/dL Invalid Interpretation Code 60 - 181 ng/dL AH ADM SS Thyroglobulin Ab IA Qn 20 unit/mL Invalid Interpretation Code 15 - 60 unit/mL AH ADM SS TPO Ab IA Qn unit/mL Invalid Interpretation Code 0 - 60 unit/mL AH ADM SS LARGE JOINT/BURSA INJECTION AND/OR ASPIRATION: L kneeon 01-13-2022 ENEDINA Olivera 01/27/2022 9:01 PM LARGE JOINT/BURSA INJECTION AND/OR ASPIRATION: L knee Date/Time: 01/13/2022 1:00 PM Supporting Documentation Indications: pain and osteoarthritis Procedure Details: Location: knee - L knee Local Anesthetic: ethyl chloride (cold spray) Needle size: 22 G Approach: anterolateral Medication Verification: I have personally verified and performed the final check of the medication(s) used in this procedure prior to administration. The following items were included during the verification process for medication(s) administered: drug name, strength, volume, expiration, physical integrity and appearance of the medication(s). Medications administered: 20 mg Sodium Hyaluronate 20 MG/2ML Patient tolerance: patient tolerated the procedure well with no immediate complications Consent: Consent was obtained prior to the procedure after discussion of the risks, benefits and alternatives, and expected outcomes were discussed with the patient. The possibilities of reaction to medication, bleeding, infection, the need for additional procedures, failure to diagnosis a condition, and creating a complication requiring operation were discussed with the patient. The patient concurred with the proposed plan, giving consent. Preparation: Patient was prepped in the usual sterile fashion. The patient was prepped with alcohol. [facility] LARGE JOINT/BURSA INJECTION AND/OR ASPIRATION: L [facility] 01-09-2022 Radiology Study observation (narrative) [facility] LARGE JOINT/BURSA INJECTION AND/OR ASPIRATION: L knee 01-05-2022 ENEDINA Olivera 01/05/2022 1:11 PM LARGE JOINT/BURSA INJECTION AND/OR ASPIRATION: L knee Date/Time: 01/05/2022 1:00 PM Supporting Documentation Indications: pain and osteoarthritis Procedure Details: Location: knee - L knee Local Anesthetic: ethyl chloride (cold spray) Needle size: 22 G Approach: anterolateral Medication Verification: I have personally verified and performed the final check of the medication(s) used in this procedure prior to administration. The following items were included during the verification process for medication(s) administered: drug name, strength, volume, expiration, physical integrity and appearance of the medication(s). Medications administered: 20 mg Sodium Hyaluronate 20 MG/2ML Patient tolerance: patient tolerated the procedure well with no immediate complications Consent: Consent was obtained prior to the procedure after discussion of the risks, benefits and alternatives, and expected outcomes were discussed with the patient. The possibilities of reaction to medication, bleeding, infection, the need for additional procedures, failure to diagnosis a condition, and creating a complication requiring operation were discussed with the patient. The patient concurred with the proposed plan, giving consent. Preparation: Patient was prepped in the usual sterile fashion. The patient was prepped with alcohol. [facility] Radiology Study observation (narrative) [facility] LARGE JOINT/BURSA INJECTION AND/OR ASPIRATION: L knee 12-29-2021 Tomasz Carrero ATC 01/09/2022 11:25 AM LARGE JOINT/BURSA INJECTION AND/OR ASPIRATION: L knee Date/Time: 12/29/2021 1:30 PM Supporting Documentation Indications: pain and osteoarthritis Procedure Details: Location: knee - L knee Local Anesthetic: ethyl chloride (cold spray) Needle size: 22 G Approach: anterolateral Medication Verification: I have personally verified and performed the final check of the medication(s) used in this procedure prior to administration. The following items were included during the verification process for medication(s) administered: drug name, strength, volume, expiration, physical integrity and appearance of the medication(s). Medications administered: 20 mg Sodium Hyaluronate 20 MG/2ML Patient tolerance: patient tolerated the procedure well with no immediate complications Consent: Consent was obtained prior to the procedure after discussion of the risks, benefits and alternatives, and expected outcomes were discussed with the patient. The possibilities of reaction to medication, bleeding, infection, the need for additional procedures, failure to diagnosis a condition, and creating a complication requiring operation were discussed with the patient. The patient concurred with the proposed plan, giving consent. Preparation: Patient was prepped in the usual sterile fashion. The patient was prepped with alcohol. [facility] LARGE JOINT/BURSA INJECTION AND/OR ASPIRATION: L kneeon 06-16-2021 Tomasz Carrero, [facility] 06/20/2021 5:16 PM LARGE JOINT/BURSA INJECTION AND/OR ASPIRATION: L knee Date/Time: 06/16/2021 11:10 AM Supporting Documentation Indications: pain and osteoarthritis Procedure Details: Location: knee - L knee Local Anesthetic: ethyl chloride (cold spray) Needle size: 22 G Approach: anterolateral Medication Verification: I have personally verified and performed the final check of the medication(s) used in this procedure prior to administration. The following items were included during the verification process for medication(s) administered: drug name, strength, volume, expiration, physical integrity and appearance of the medication(s). Medications administered: 20 mg Sodium Hyaluronate 20 MG/2ML Patient tolerance: patient tolerated the procedure well with no immediate complications Consent: Consent was obtained prior to the procedure after discussion of the risks, benefits and alternatives, and expected outcomes were discussed with the patient. The possibilities of reaction to medication, bleeding, infection, the need for additional procedures, failure to diagnosis a condition, and creating a complication requiring operation were discussed with the patient. The patient concurred with the proposed plan, giving consent. Preparation: Patient was prepped in the usual sterile fashion. The patient was prepped with alcohol. 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 The following items were included during the verification process for medication(s) administered: drug name, strength, volume, expiration, physical integrity and appearance of the medication(s). Medications administered: 20 mg Sodium Hyaluronate 20 MG/2ML Patient tolerance: patient tolerated the procedure well with no immediate complications Consent: Consent was obtained prior to the procedure after discussion of the risks, benefits and alternatives, and expected outcomes were discussed with the patient. The possibilities of reaction to medication, bleeding, infection, the need for additional procedures, failure to diagnosis a condition, and creating a complication requiring operation were discussed with the patient. The patient concurred with the proposed plan, giving consent. Preparation: Patient was prepped in the usual sterile fashion. The patient was prepped with alcohol. [facility] LARGE JOINT/BURSA INJECTION AND/OR ASPIRATION: L kneeon 05-26-2021 Tomasz Carrero ATC 06/17/2021 9:52 AM LARGE JOINT/BURSA INJECTION AND/OR ASPIRATION: L knee Date/Time: 05/26/2021 11:10 AM Supporting Documentation Indications: pain and osteoarthritis Procedure Details: Location: knee - L knee Local Anesthetic: ethyl chloride (cold spray) Needle size: 22 G Approach: anterolateral Medication Verification: I have personally verified and performed the final check of the medication(s) used in this procedure prior to administration. The following items were included during the verification process for medication(s) administered: drug name, strength, volume, expiration, physical integrity and appearance of the medication(s). Medications administered: 20 mg Sodium Hyaluronate 20 MG/2ML Patient tolerance: patient tolerated the procedure well with no immediate complications Consent: Consent was obtained prior to the procedure after discussion of the risks, benefits and alternatives, and expected outcomes were discussed with the patient. The possibilities of reaction to medication, bleeding, infection, the need for additional procedures, failure to diagnosis a condition, and creating a complication requiring operation were discussed with the patient. The patient concurred with the proposed plan, giving consent. Preparation: Patient was prepped in the usual sterile fashion. The patient was prepped with alcohol. [facility] MRI KNEE LEFT WITHOUT CONTRA STon 02-19-2021 MRI KNEE LEFT WITHOUT CONTRAST HISTORY: Left knee pain. The patient has a history of prior surgeries on the left knee for anterior cruciate ligament reconstruction surgery. The last surgery was reportedly in 2012. MRI KNEE LEFT WITHOUT CONTRAST: 02/18/2021 1:35 PM EDT COMPARISON: Radiographs left knee 02/03/2021. TECHNIQUE: Multiplanar, multisequence MRI images of the left knee were obtained without contrast. FINDINGS: JOINT SPACES: There is a small joint effusion. 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 There also appears to be patchy grade 2 chondromalacia involving the central and medial patellar facet cartilage. There are mild degenerative changes of the medial femorotibial compartment with osteophyte formation again seen to involve the posterior weightbearing portion of the medial femoral condyle in the region of a chronic area of high-grade chondromalacia. The remaining articular cartilage appears grossly within normal limits. Along the anterior aspect of the intercondylar notch there is an ovoid low signal intensity focus measuring 7 x 8 x 10 mm. LIGAMENTS AND TENDONS: The medial collateral ligament appears within normal limits. The lateral collateral ligament, posterior cruciate ligament, iliotibial band, and visualized distal quadriceps tendon appear within normal limits. There are postsurgical changes from prior anterior cruciate ligament reconstruction surgery and the anterior cruciate ligament graft appears intact. The anterior cruciate ligament graft has a slightly vertical orientation. There are postsurgical changes involving the central aspect of the patellar tendon from prior anterior cruciate ligament graft harvest. There is mild thickening and low signal intensity of the patellar tendon otherwise compatible with postsurgical scarring. There is a moderate amount of linear scarring in the infrapatellar fat pad. MENISCI: The body and entire posterior horn of the medial meniscus appears diminutive in size and blunted. The lateral meniscus appears grossly within normal limits. BONES: The bone marrow signal intensity is age appropriate. MUSCLES AND SOFT TISSUES: The visualized musculature appears of normal signal intensity. There is no Negro cyst. IMPRESSION: 1. 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 2. Mild osteoarthritis of the medial femorotibial compartment. 3. Small joint effusion with an ovoid 10 mm filling defect along the anterior aspect of the intercondylar notch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 non-user [facility] Start: 05-26-2021 End: 01-11-2024 Alcohol intake Current drinker of alcohol (finding) [facility] Start: 02-03-2021 History SDOH Alcohol Comment occ [facility] Sex Assigned At Female [facility] Start: 12-17-2022 End: 01-03-2024 History of Social function [facility] Start: 12-17-2022 End: 01-03-[address] [facility] Clinical Notes 05-26-2021 to 01-18-2024 Tomasz Carrero ATC - 01/18/2024 1:00 PM Ingrid Anguiano MD - 01/18/2024 1:00 PM Jorge Carrero ATC - 01/11/2024 1:00 PM Ingrid Anguiano MD - 01/11/2024 1:00 PM EDTLaboratoryRadiology Note Date & Type Note Facility 01-18-2024 History of Present illness Narrative Associated Order(s): LARGE JOINT/BURSA INJECTION AND/OR ASPIRATION: L knee Post-Procedure Diagnose(s): Primary osteoarthritis of left knee Chief Complaint Patient presents with Knee Pain Left knee - Euflexxa 3 of 3. LARGE JOINT/BURSA INJECTION AND/OR ASPIRATION: L knee Date/Time: 01/18/2024 1:00 PM Performed by: Myron Anguiano MD Authorized by: Myron Anguiano MD Supporting Documentation Indications: pain and osteoarthritis Procedure Details: Location: knee - L knee Local Anesthetic: ethyl chloride (cold spray) Needle size: 22 G Approach: anterolateral Medication Verification: I have personally verified and performed the final check of the medication(s) used in this procedure prior to administration. The following items were included during the verification process for medication(s) administered: drug name, strength, volume, expiration, physical integrity and appearance of the medication(s). Medications administered: 20 mg Sodium Hyaluronate (Viscosup) 20 MG/2ML Patient tolerance: patient tolerated the procedure well with no immediate complications Consent: Consent was obtained prior to the procedure after discussion of the risks, benefits and alternatives, and expected outcomes were discussed with the patient. The possibilities of reaction to medication, bleeding, infection, the need for additional procedures, failure to diagnosis a condition, and creating a complication requiring operation were discussed with the patient. The patient concurred with the proposed plan, giving consent. Preparation: Patient was prepped in the usual sterile fashion. The patient was prepped with alcohol. Chief Complaint Patient presents with Knee Pain Left knee - Euflexxa 3 of 3. LARGE JOINT/BURSA INJECTION AND/OR ASPIRATION: L knee Date/Time: 01/18/2024 1:00 PM Performed by: Myron Anguiano MD Authorized by: Myron Anguiano MD Supporting Documentation Indications: pain and osteoarthritis Procedure Details: Location: knee - L knee Local Anesthetic: ethyl chloride (cold spray) Needle size: 22 G Approach: anterolateral Medication Verification: I have personally verified and performed the final check of the medication(s) used in this procedure prior to administration. The following items were included during the verification process for medication(s) administered: drug name, strength, volume, expiration, physical integrity and appearance of the medication(s). Medications administered: 20 mg Sodium Hyaluronate (Viscosup) 20 MG/2ML Patient tolerance: patient tolerated the procedure well with no immediate complications Consent: Consent was obtained prior to the procedure after discussion of the risks, benefits and alternatives, and expected outcomes were discussed with the patient. The possibilities of reaction to medication, bleeding, infection, the need for additional procedures, failure to diagnosis a condition, and creating a complication requiring operation were discussed with the patient. The patient concurred with the proposed plan, giving consent. Preparation: Patient was prepped in the usual sterile fashion. The patient was prepped with alcohol. MARYANN Rodrigez was acting as a scribe today for this note. I have performed all essential components of the history, and physical exam. I have confirmed the diagnosis and developed a plan of care at this visit. I have reviewed the note following the visit and have add edits as appropriate to my evaluation and plan of care. Myron Anguiano MD documented in this encounter [facility] 01-11-2024 History of Present illness Narrative Associated Order(s): LARGE JOINT/BURSA INJECTION AND/OR ASPIRATION: L knee Post-Procedure Diagnose(s): Primary osteoarthritis of left knee Chief Complaint Patient presents with Knee Pain Left knee - Euflexxa 2 of 3. LARGE JOINT/BURSA INJECTION AND/OR ASPIRATION: L knee Date/Time: 01/11/2024 1:00 PM Performed by: Myron Anguiano MD Authorized by: Myron Anguiano MD Supporting Documentation Indications: pain and osteoarthritis Procedure Details: Location: knee - L knee Local Anesthetic: ethyl chloride (cold spray) Needle size: 22 G Approach: anterolateral Medication Verification: I have personally verified and performed the final check of the medication(s) used in this procedure prior to administration. The following items were included during the verification process for medication(s) administered: drug name, strength, volume, expiration, physical integrity and appearance of the medication(s). Medications administered: 20 mg Sodium Hyaluronate (Viscosup) 20 MG/2ML Patient tolerance: patient tolerated the procedure well with no immediate complications Consent: Consent was obtained prior to the procedure after discussion of the risks, benefits and alternatives, and expected outcomes were discussed with the patient. The possibilities of reaction to medication, bleeding, infection, the need for additional procedures, failure to diagnosis a condition, and creating a complication requiring operation were discussed with the patient. The patient concurred with the proposed plan, giving consent. Preparation: Patient was prepped in the usual sterile fashion. The patient was prepped with alcohol. Chief Complaint Patient presents with Knee Pain Left knee - Euflexxa 2 of 3. LARGE JOINT/BURSA INJECTION AND/OR ASPIRATION: L knee Date/Time: 01/11/2024 1:00 PM Performed by: Myron Anguiano MD Authorized by: Myron Anguiano MD Supporting Documentation Indications: pain and osteoarthritis Procedure Details: Location: knee - L knee Local Anesthetic: ethyl chloride (cold spray) Needle size: 22 G Approach: anterolateral Medication Verification: I have personally verified and performed the final check of the medication(s) used in this procedure prior to administration. The following items were included during the verification process for medication(s) administered: drug name, strength, volume, expiration, physical integrity and appearance of the medication(s). Medications administered: 20 mg Sodium Hyaluronate (Viscosup) 20 MG/2ML Patient tolerance: patient tolerated the procedure well with no immediate complications Consent: Consent was obtained prior to the procedure after discussion of the risks, benefits and alternatives, and expected outcomes were discussed with the patient. The possibilities of reaction to medication, bleeding, infection, the need for additional procedures, failure to diagnosis a condition, and creating a complication requiring operation were discussed with the patient. The patient concurred with the proposed plan, giving consent. Preparation: Patient was prepped in the usual sterile fashion. The patient was prepped with alcohol. MARYANN Rodrigez was acting as a scribe today for this note. I have performed all essential components of the history, and physical exam. I have confirmed the diagnosis and developed a plan of care at this visit. I have reviewed the note following the visit and have add edits as appropriate to my evaluation and plan of care. Myron Anguiano MD documented in this encounter [facility] 01-03-2024 History of Present illness Narrative Chief Complaint Patient presents with Knee Pain Left knee Euflexxa series completed 01/25/23. Patient states she had good relief with the injections but her pain started returning about 1 month ago. HPI: Patient presents in follow-up for left knee pain. Left knee Euflexxa series completed on 01/25/2023. Patient states that she had significant relief from the injections. The pain has only recently started to return approximately 1 month ago. She is here today to discuss options for the left knee. To recap previous visit Patient presents in follow-up for left knee pain. Euflexxa series completed on 01/13/2022. Patient states that she had relief for approximately 5-6 months. She is here today to discuss options for repeating the series. Vitals: 01/03/24 1253 Weight: 70.8 kg (156 lb) Height: 1.676 m (5' 6 ) Physical Exam: Knee Exam: left ROM: 0-120. Quad tone: Fair. Calf supple and nontender. No effusion. Palpation: Mild medial joint line tenderness, nontender laterally Emmanuel's: Negative Posterior Drawer: Negative Varus/Valgus stress: Negative Camila's: Mildly Positive Patellar apprehension: Negative Patellar compression: Positive Distally neurovascular intact with 2+ DP pulse and full sensation in the DP/SP/Tibial nerve distributions. Review of Images: See procedure note Assessment: ICD-10-CM 1. Primary osteoarthritis of left knee M17.12 Plan: At this time, we have reviewed the past medical notes pertaining to her chief complaint today, as well as her MRI which shows signs of advanced medial compartment knee OA as well as history of ACL reconstruction. We have discussed options with the patient today from conservative to surgical. At this time we have discussed the natural history of knee OA and possible treatment options from conservative to surgical TKA. The patient has failed intraarticular steroid injections and over the counter pain medications. She received significant relief from the Euflexxa series in the past. The knee pain has returned. She is not interested in pursuing surgical options. Due to this, we are offering her a left knee Euflexxa series beginning today. Today will be injection 1 of 3. She will follow up in 1 week for injection #2 and 2 weeks for injection #3. Call the office with any questions or concerns in meantime. Associated Order(s): LARGE JOINT/BURSA INJECTION AND/OR ASPIRATION: L knee Post-Procedure Diagnose(s): Primary osteoarthritis of left knee LARGE JOINT/BURSA INJECTION AND/OR ASPIRATION: L knee Date/Time: 01/03/2024 1:00 PM Performed by: Myron Anguiano MD Authorized by: Myron Anguiano MD Supporting Documentation Indications: pain and osteoarthritis Procedure Details: Location: knee - L knee Local Anesthetic: ethyl chloride (cold spray) Needle size: 22 G Approach: anterolateral Medication Verification: I have personally verified and performed the final check of the medication(s) used in this procedure prior to administration. The following items were included during the verification process for medication(s) administered: drug name, strength, volume, expiration, physical integrity and appearance of the medication(s). Medications administered: 20 mg Sodium Hyaluronate (Viscosup) 20 MG/2ML Patient tolerance: patient tolerated the procedure well with no immediate complications Consent: Consent was obtained prior to the procedure after discussion of the risks, benefits and alternatives, and expected outcomes were discussed with the patient. The possibilities of reaction to medication, bleeding, infection, the need for additional procedures, failure to diagnosis a condition, and creating a complication requiring operation were discussed with the patient. The patient concurred with the proposed plan, giving consent. Preparation: Patient was prepped in the usual sterile fashion. The patient was prepped with alcohol. Chief Complaint Patient presents with Knee Pain Left knee Euflexxa series completed 01/25/23. Patient states she had good relief with the injections but her pain started returning about 1 month ago. HPI: Patient presents in follow-up for left knee pain. Left knee Euflexxa series completed on 01/25/2023. Patient states that she had significant relief from the injections. The pain has only recently started to return approximately 1 month ago. She is here today to discuss options for the left knee. To recap previous visit Patient presents in follow-up for left knee pain. Euflexxa series completed on 01/13/2022. Patient states that she had relief for approximately 5-6 months. She is here today to discuss options for repeating the series. Vitals: 01/03/24 1253 Weight: 70.8 kg (156 lb) Height: 1.676 m (5' 6 ) Physical Exam: Knee Exam: left ROM: 0-120. Quad tone: Fair. Calf supple and nontender. No effusion. Palpation: Mild medial joint line tenderness, nontender laterally Emmanuel's: Negative Posterior Drawer: Negative Varus/Valgus stress: Negative Camila's: Mildly Positive Patellar apprehension: Negative Patellar compression: Positive Distally neurovascular intact with 2+ DP pulse and full sensation in the DP/SP/Tibial nerve distributions. Review of Images: See procedure note Assessment: ICD-10-CM 1. Primary osteoarthritis of left knee M17.12 Plan: At this time, we have reviewed the past medical notes pertaining to her chief complaint today, as well as her MRI which shows signs of advanced medial compartment knee OA as well as history of ACL reconstruction. We have discussed options with the patient today from conservative to surgical. At this time we have discussed the natural history of knee OA and possible treatment options from conservative to surgical TKA. The patient has failed intraarticular steroid injections and over the counter pain medications. She received significant relief from the Euflexxa series in the past. The knee pain has returned. She is not interested in pursuing surgical options. Due to this, we are offering her a left knee Euflexxa series beginning today. Today will be injection 1 of 3. She will follow up in 1 week for injection #2 and 2 weeks for injection #3. Call the office with any questions or concerns in meantime. LARGE JOINT/BURSA INJECTION AND/OR ASPIRATION: L knee Date/Time: 01/03/2024 1:00 PM Performed by: Myron Anguiano MD Authorized by: Myron Anguiano MD Supporting Documentation Indications: pain and osteoarthritis Procedure Details: Location: knee - L knee Local Anesthetic: ethyl chloride (cold spray) Needle size: 22 G Approach: anterolateral Medication Verification: I have personally verified and performed the final check of the medication(s) used in this procedure prior to administration. The following items were included during the verification process for medication(s) administered: drug name, strength, volume, expiration, physical integrity and appearance of the medication(s). Medications administered: 20 mg Sodium Hyaluronate (Viscosup) 20 MG/2ML Patient tolerance: patient tolerated the procedure well with no immediate complications Consent: Consent was obtained prior to the procedure after discussion of the risks, benefits and alternatives, and expected outcomes were discussed with the patient. The possibilities of reaction to medication, bleeding, infection, the need for additional procedures, failure to diagnosis a condition, and creating a complication requiring operation were discussed with the patient. The patient concurred with the proposed plan, giving consent. Preparation: Patient was prepped in the usual sterile fashion. The patient was prepped with alcohol. MARYANN Rodrigez was acting as a scribe today for this note. I have performed all essential components of the history, and physical exam. I have confirmed the diagnosis and developed a plan of care at this visit. I have reviewed the note following the visit and have add edits as appropriate to my evaluation and plan of care. Myron Anguiano MD documented in this encounter [facility] 10-28-2023 Evaluation + Plan note Diagnostic Tests PendingHPV Screen, DNA Probe 10/28/23 Future Scheduled TestsThyroid Stimulating Hormone 10/28/23Free T4 10/28/23Complete Metabolic Panel 10/28/23US Elastography Liver Only 10/28/23 [facility] 09-02-2023 History of Present illness Narrative Nurse Note: Review of Systems All other systems reviewed and are negative. Nursing Assessment: Physical Exam Kinjal Hutchinson is a 33 y.o. female Pt is here for a follow up on HIDA and US done 08/11 for abdominal pain Pt complains of some pain still. Images from the original note were not included. Chief Complaint: Chief Complaint Patient presents with Follow-up HPI: Ms. Hutchinson is a 33 y/o F who is well known to me. She and and her are both nurses. She initially presented to me with epigastric abdominal pain. I last saw her in February because she and her spend the winter months in a different portion of the country. They returned today and have obtained an HIDA scan as well as an right upper quadrant ultrasound to further evaluate her discomfort. She had an EGD that showed a mild amount of bile gastritis but H pylori was negative. Right upper quadrant ultrasound showed sludge and HIDA scan showed an ejection fraction of 81%. She overall has very mild symptoms and she is unsure if she wants anything further done. She is slightly concerned about the findings of hepatic steatosis on the right upper quadrant ultrasound. This correlates with her hepatic function panel being slightly elevated with her AST and her ALT both being in the 60s about double the baseline normal. She is concerned for DAS and wishes to further evaluate her steatosis No past medical history on file. Past Surgical History: Procedure Laterality Date ACL RECONSTRUCTION Left 2012 allograft antieror tib ARTHROSCOPY KNEE W/ MENISCUS REPAIR Left 2008 ACL RECONSTRUCTION Left 2006 autograft hami Social History Social History Socioeconomic History Marital status: Spouse name: Not on file Number of children: Not on file Years of education: Not on file Highest education level: Not on file Occupational History Not on file Tobacco Use Smoking status: Never Smokeless tobacco: Never Vaping Use Vaping status: Never Used Substance and Sexual Activity Alcohol use: Yes Comment: occ Drug use: Never Sexual activity: Yes Partners: Male Other Topics Concern Not on file Social History Narrative Not on file Social Determinants of Health Financial Resource Strain: Not on file Food Insecurity: Not on file Transportation Needs: Not on file Physical Activity: Not on file Stress: Not on file Social Connections: Not on file Intimate Partner Violence: Not on file Housing Stability: Not on file No family history on file. Medications: Current Outpatient Medications Medication Sig Dispense Refill drospirenone-ethinyl estradiol 3-0.02 MG tablet Take 1 tablet by mouth daily. Multiple Vitamin (multivitamin) tablet Take 1 tablet by mouth daily. ondansetron 4 MG Tab Dispersible tablet dissolve 1 tablet ON TONGUE three times a day No current facility-administered medications for this visit. Allergies: Patient has no known allergies. Review of Systems: Per HPI A detailed 14 point review of systems was discussed with the patient and was negative unless otherwise stated above Physical Exam Vital Signs: Smoking Status Never General: Well-developed, well-nourished. Alert and oriented to person, place and time. No acute distress HEENT: Atraumatic, normocephalic, extra ocular muscles intact. No scleral icterus. Neck: Supple Heart: Regular rate and rhythm no murmurs Lungs: Equal chest rise bilaterally without recruitment of accessory muscles. Abdomen: Soft, non-tender, non-distended. No rebound, guarding, or peritoneal signs. Extremities: Non-tender, no edema Laboratory Data: No results found for: WBC , WBCCOUNT , WBCFETAL , HGB , HCT , PLATELET , MCV No results found for: SODIUM , POTASSIUM , CHLORIDE , CO2 , BUN , CREATSERUM , GLUCOSE No results found for: ALT , TRANSFERASEA , AST , GGT , GAMMAGT , ALKPHOS , BILITOTAL , BILIDIRECT Diagnostic Imaging: COMPARISON: Ultrasound 08/12/2023. METHOD: Following IV injection of 4.2 mCi of [id number], anterior imaging of the abdomen was acquired for 60 minutes. After the gallbladder was visualized the patient was given Ensure and the gallbladder ejection fraction was calculated. FINDINGS: There is satisfactory uptake of radiopharmaceutical by the liver. The gallbladder, bile duct, and bowel are seen in the expected period of time and sequence. The gallbladder ejection fraction is normal at 81%. IMPRESSION IMPRESSION: Normal hepatic biliary scintigraphy and gallbladder ejection fraction. COMPARISON: There is no appropriate prior study for comparison. Findings: This study is limited to the right upper quadrant. The proximal abdominal aorta measures 1.9 centimeter, the midportion measures 1.5, centimeter, and infrarenal abdominal aorta measures 1.4 centimeter. Given the limitation of the ultrasound for evaluation of the pancreas, the visualized portion of pancreas is unremarkable. The liver is diffusely hyperechogenic with no definite focal lesion. There is sludge within the gallbladder without pericholecystic fluid or wall thickening. There is no ultrasound Vann's sign. The proximal common bile duct measures 4 mm. The right kidney normal in size measuring 8.8 x 4.2 x 5.2 cm. No hydronephrosis is noted. IMPRESSION IMPRESSION: Findings suggestive of hepatic steatosis or diffuse fibrotic process. Sludge within the gallbladder without pericholecystic fluid or wall thickening. No other significant abnormality is noted. I have personally reviewed both these images and agree with the findings as stated above Impression/Plan: 33-year-old female presenting with persistent very mild right upper quadrant abdominal pain and epigastric abdominal pain of unclear etiology. I have explained to her that due to the findings of sludge I do think that it was possible all of her symptoms are related to mild symptomatic cholelithiasis versus biliary dyskinesia. I explained to her that the only definitive way to rule out her symptoms would be to perform a cholecystectomy. Ultimately she has not very interested in performing the surgical procedure as she is very mild symptoms in his managed without significant limitation in the quality of her life. Over she is much more concerned about the findings of steatosis of her liver. She is highly concerned about DAS and has been causing her significant amount of stress especially with a correlating findings of elevated liver function panel. I explained to her that the next step would be to perform a tissue biopsy of her liver to see if they are actually signs of fibrosis of her liver. I explained the options for her be done trans hepatic lobe with Interventional Radiology or percutaneously with the ultrasound or CT-guided biopsy of her liver. I also explained it could be done during a cholecystectomy and actual partial wedge resection for more tissue diagnosis could be done during surgery. Ultimately she would like to avoid any surgical procedure as it was much higher risk and would like to proceed forward with the radiology guided biopsy of her liver. She can follow up with me on an as-needed basis. I will order a ultrasound versus CT biopsy of her liver for tissue diagnosis. She understands that if she has worsening symptoms she will reach out to me and we can again discuss the possibility of a cholecystectomy Laura Story MD General Surgery [place] [id number] Office - [phone] Fax - [phone] documented in this encounter [facility] 02-04-2023 History of Present illness Narrative Nurse Note: Review of Systems Nursing Assessment: Physical Exam Kinjal Hutchinson is a 32 y.o. female Pt is here for a follow up on EGD Pt denies pain. Pt feels better - not really having symptoms any longer. Images from the original note were not included. 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 We proceed forward with an EGD that showed her have a significant amount of bile gastritis. H pylori testing was negative. I started her on antacid medication and she states that it made her symptoms worse. On further review she states that she is been formally unable to tolerate milk products as that we will also worsen her symptoms. Overall she is essentially unchanged since the endoscopic evaluation No past medical history on file. Past Surgical History: Procedure Laterality Date ACL RECONSTRUCTION Left 2012 allograft antieror tib ARTHROSCOPY KNEE W/ MENISCUS REPAIR Left 2008 ACL RECONSTRUCTION Left 2006 autograft hami Social History Social History Socioeconomic History Marital status: Spouse name: Not on file Number of children: Not on file Years of education: Not on file Highest education level: Not on file Occupational History Not on file Tobacco Use Smoking status: Never Smokeless tobacco: Never Vaping Use Vaping Use: Never used Substance and Sexual Activity Alcohol use: Yes Comment: occ Drug use: Never Sexual activity: Yes Partners: Male Other Topics Concern Not on file Social History Narrative Not on file Social Determinants of Health Financial Resource Strain: Not on file Food Insecurity: Not on file Transportation Needs: Not on file Physical Activity: Not on file Stress: Not on file Social Connections: Not on file Intimate Partner Violence: Not on file Housing Stability: Not on file History reviewed. No pertinent family history. Medications: Current Outpatient Medications Medication Sig Dispense Refill drospirenone-ethinyl estradiol 3-0.02 MG tablet Take 1 tablet by mouth daily. Multiple Vitamin (multivitamin) tablet Take 1 tablet by mouth daily. ondansetron 4 MG Tab Dispersible tablet dissolve 1 tablet ON TONGUE three times a day Pantoprazole (Protonix) [address] tablet DR Take 1 tablet by mouth daily. Please take 30 minutes prior to meal once a day 30 tablet 2 No current facility-administered medications for this visit. Allergies: Patient has no known allergies. Review of Systems: Per HPI A detailed 14 point review of systems was discussed with the patient and was negative unless otherwise stated above Physical Exam Vital Signs: Ht 1.676 m (5' 6 ) BMI 25.18 kg/m Smoking Status Never General: Well-developed, well-nourished. Alert and oriented to person, place and time. No acute distress HEENT: Atraumatic, normocephalic, extra ocular muscles intact. No scleral icterus. Neck: Supple Heart: Regular rate and rhythm no murmurs Lungs: Equal chest rise bilaterally without recruitment of accessory muscles. Abdomen: Soft, non-tender, non-distended. No rebound, guarding, or peritoneal signs. Extremities: Non-tender, no edema Laboratory Data: No results found for: WBC , WBCCOUNT , WBCFETAL , HGB , HCT , PLATELET , MCV No results found for: SODIUM , POTASSIUM , CHLORIDE , CO2 , BUN , CREATSERUM , GLUCOSE No results found for: ALT , TRANSFERASEA , AST , GGT , GAMMAGT , ALKPHOS , BILITOTAL , BILIDIRECT Impression/Plan: 32-year-old female presenting with mild abdominal pain of unclear etiology that has been chronic in nature. I discussed the findings with her in detail and reviewed the endoscopic reports. Although I do think it is possible that her gastritis could be the main cause of her symptoms we do not have a clear etiology of why she is having persistent bilious gastritis. She is never had a right upper quadrant ultrasound or HIDA scan. I do feel that an further review her symptoms are concerning for possible biliary etiology. I have ordered a right upper quadrant ultrasound as well as a HIDA scan to ensure there was no underlying biliary dyskinesia versus chronic cholecystitis. She and her are going to be going out of town and they will communicate with me when they get the test results back. They can follow up with me on an as-needed basis and we will discuss the results of the tests when they are completed. Laura Story MD General Surgery [place] [address] Office - [phone] Fax - [phone] documented in this encounter [facility] 01-25-2023 History of Present illness Narrative Associated Order(s): LARGE JOINT/BURSA INJECTION AND/OR ASPIRATION: L knee Post-Procedure Diagnose(s): Primary osteoarthritis of left knee Chief Complaint Patient presents with Knee Pain Left knee Euflexxa injection 3 of 3. LARGE JOINT/BURSA INJECTION AND/OR ASPIRATION: L knee Date/Time: 01/25/2023 11:10 AM Performed by: Myron Anguiano MD Authorized by: Myron Anguiano MD Supporting Documentation Indications: pain and osteoarthritis Procedure Details: Location: knee - L knee Local Anesthetic: ethyl chloride (cold spray) Needle size: 22 G Approach: anterolateral Medication Verification: I have personally verified and performed the final check of the medication(s) used in this procedure prior to administration. The following items were included during the verification process for medication(s) administered: drug name, strength, volume, expiration, physical integrity and appearance of the medication(s). Medications administered: 20 mg Sodium Hyaluronate (Viscosup) 20 MG/2ML Patient tolerance: patient tolerated the procedure well with no immediate complications Consent: Consent was obtained prior to the procedure after discussion of the risks, benefits and alternatives, and expected outcomes were discussed with the patient. The possibilities of reaction to medication, bleeding, infection, the need for additional procedures, failure to diagnosis a condition, and creating a complication requiring operation were discussed with the patient. The patient concurred with the proposed plan, giving consent. Preparation: Patient was prepped in the usual sterile fashion. The patient was prepped with alcohol. Chief Complaint Patient presents with Knee Pain Left knee Euflexxa injection 3 of 3. LARGE JOINT/BURSA INJECTION AND/OR ASPIRATION: L knee Date/Time: 01/25/2023 11:10 AM Performed by: Myron Anguiano MD Authorized by: Myron Anguiano MD Supporting Documentation Indications: pain and osteoarthritis Procedure Details: Location: knee - L knee Local Anesthetic: ethyl chloride (cold spray) Needle size: 22 G Approach: anterolateral Medication Verification: I have personally verified and performed the final check of the medication(s) used in this procedure prior to administration. The following items were included during the verification process for medication(s) administered: drug name, strength, volume, expiration, physical integrity and appearance of the medication(s). Medications administered: 20 mg Sodium Hyaluronate (Viscosup) 20 MG/2ML Patient tolerance: patient tolerated the procedure well with no immediate complications Consent: Consent was obtained prior to the procedure after discussion of the risks, benefits and alternatives, and expected outcomes were discussed with the patient. The possibilities of reaction to medication, bleeding, infection, the need for additional procedures, failure to diagnosis a condition, and creating a complication requiring operation were discussed with the patient. The patient concurred with the proposed plan, giving consent. Preparation: Patient was prepped in the usual sterile fashion. The patient was prepped with alcohol. MARYANN Rodrigez was acting as a scribe today for this note. I have performed all essential components of the history, and physical exam. I have confirmed the diagnosis and developed a plan of care at this visit. I have reviewed the note following the visit and have add edits as appropriate to my evaluation and plan of care. Myron Anguiano MD documented in this encounter [facility] 01-19-2023 History of Present illness Narrative Associated Order(s): LARGE JOINT/BURSA INJECTION AND/OR ASPIRATION: L knee Post-Procedure Diagnose(s): Primary osteoarthritis of left knee Chief Complaint Patient presents with Knee Pain Left knee Euflexxa injection 2 of 3. LARGE JOINT/BURSA INJECTION AND/OR ASPIRATION: L knee Date/Time: 01/19/2023 11:10 AM Performed by: Myron Anguiano MD Authorized by: Myron Anguiano MD Supporting Documentation Indications: pain and osteoarthritis Procedure Details: Location: knee - L knee Local Anesthetic: ethyl chloride (cold spray) Needle size: 22 G Approach: anterolateral Medication Verification: I have personally verified and performed the final check of the medication(s) used in this procedure prior to administration. The following items were included during the verification process for medication(s) administered: drug name, strength, volume, expiration, physical integrity and appearance of the medication(s). Medications administered: 20 mg Sodium Hyaluronate (Viscosup) 20 MG/2ML Patient tolerance: patient tolerated the procedure well with no immediate complications Consent: Consent was obtained prior to the procedure after discussion of the risks, benefits and alternatives, and expected outcomes were discussed with the patient. The possibilities of reaction to medication, bleeding, infection, the need for additional procedures, failure to diagnosis a condition, and creating a complication requiring operation were discussed with the patient. The patient concurred with the proposed plan, giving consent. Preparation: Patient was prepped in the usual sterile fashion. The patient was prepped with alcohol. Chief Complaint Patient presents with Knee Pain Left knee Euflexxa injection 2 of 3. LARGE JOINT/BURSA INJECTION AND/OR ASPIRATION: L knee Date/Time: 01/19/2023 11:10 AM Performed by: Myron Anguiano MD Authorized by: Myron Anguiano MD Supporting Documentation Indications: pain and osteoarthritis Procedure Details: Location: knee - L knee Local Anesthetic: ethyl chloride (cold spray) Needle size: 22 G Approach: anterolateral Medication Verification: I have personally verified and performed the final check of the medication(s) used in this procedure prior to administration. The following items were included during the verification process for medication(s) administered: drug name, strength, volume, expiration, physical integrity and appearance of the medication(s). Medications administered: 20 mg Sodium Hyaluronate (Viscosup) 20 MG/2ML Patient tolerance: patient tolerated the procedure well with no immediate complications Consent: Consent was obtained prior to the procedure after discussion of the risks, benefits and alternatives, and expected outcomes were discussed with the patient. The possibilities of reaction to medication, bleeding, infection, the need for additional procedures, failure to diagnosis a condition, and creating a complication requiring operation were discussed with the patient. The patient concurred with the proposed plan, giving consent. Preparation: Patient was prepped in the usual sterile fashion. The patient was prepped with alcohol. MARYANN Rodrigez was acting as a scribe today for this note. I have performed all essential components of the history, and physical exam. I have confirmed the diagnosis and developed a plan of care at this visit. I have reviewed the note following the visit and have add edits as appropriate to my evaluation and plan of care. Myron Anguiano MD documented in this encounter [facility] 01-13-2023 Nurse Note Patient out of bathroom; ambulates to wheelchair for discharge. Patient ambulates slowly and steadily to bathroom. Instructed to use red call cord if needs assistance. Voices understanding. IV discontinued with angiocath intact; no redness or edema noted a site; pressure drsg applied to site; patient tolerated procedure well and is getting dressed for discharge home. Dr. Story returns to bedside; spending time speaking with patient and patient's her spouse, provides post procedure diagnosis, treatment provided and treatment recommended, answering questions and reviewing photos. Patient assisted to sit on side of cart, denies dizziness or lightheaded, call light with patient, side rail up x 1. Educated patient and her spouse, Miguel Ángel, on post anesthesia safety precautions throughout next 24 hours; both verbalize understanding. Warm blanket over shoulders for comfort. Discharge instructions, including AVS, provided and thoroughly reviewed with patient and patient's spouse; patient asking questions - reassured that will have Dr. Story stop back in and speak with patient. Patient alert, HOB elevated; patient taking nourishment of starry soda and peanut butter crackers, per patient request; patient denies difficulty swallowing, pain or nausea. Patient more alert, opens eyes to name and answers questions appropriately. Dr. Story here speaking with patient's family, provides post procedure diagnosis, treatment provided and treatment recommended. Patient to recovery bay 4, family at [facility]; patient sedated, not responding to stimuli at this time; skin pink, warm and dry, respirations easy and unlabored; no evidence of pain noted; call light with patient and side rails up x 2. documented in this encounter [facility] 01-13-2023 Nurse Surgical operation note Patient out of bathroom; ambulates to wheelchair for discharge. [facility] 01-13-2023 Nurse Surgical operation note Patient ambulates slowly and steadily to bathroom. Instructed to use red call cord if needs assistance. Voices understanding. T [facility] 01-13-2023 Nurse Surgical operation note IV discontinued with angiocath intact; no redness or edema noted a site; pressure drsg applied to site; patient tolerated procedure well and is getting dressed for discharge home. T [facility] 01-13-2023 Nurse Surgical operation note Dr. Story returns to bedside; spending time speaking with patient and patient's her spouse, provides post procedure diagnosis, treatment provided and treatment recommended, answering questions and reviewing photos. T [facility] 01-13-2023 Nurse Surgical operation note Patient assisted to sit on side of cart, denies dizziness or lightheaded, call light with patient, side rail up x 1. Educated patient and her spouse, Miguel Ángel, on post anesthesia safety precautions throughout next 24 hours; both verbalize understanding. Warm blanket over shoulders for comfort. Discharge instructions, including AVS, provided and thoroughly reviewed with patient and patient's spouse; patient asking questions - reassured that will have Dr. Story stop back in and speak with patient. [facility] 01-13-2023 Nurse Surgical operation note Patient alert, HOB elevated; patient taking nourishment of starry soda and peanut butter crackers, per patient request; patient denies difficulty swallowing, pain or nausea. [facility] 01-13-2023 Nurse Surgical operation note Patient more alert, opens eyes to name and answers questions appropriately. [facility] 01-13-2023 Nurse Surgical operation note [address] Story here speaking with patient's family, provides post procedure diagnosis, treatment provided and treatment recommended. [facility] 01-13-2023 Nurse Surgical operation note Patient to recovery bay 4, family at [facility]; patient sedated, not responding to stimuli at this time; skin pink, warm and dry, respirations easy and unlabored; no evidence of pain noted; call light with patient and side rails up x 2. [facility] 01-13-2023 History and physical note ENDOSCOPIC PREPROCEDURE HISTORY AND PHYSICAL HISTORY OF PRESENT ILLNESS: Kinjal Hutchinson is a 32 y.o. female seen in the pre-procedure area at [facility]. The indication for endoscopic evaluation includes: Gastroesophageal reflux disease without esophagitis PAST MEDICAL HISTORY: No past medical history on file. SURGICAL HISTORY: Past Surgical History: Procedure Laterality Date ACL RECONSTRUCTION Left 2012 allograft antieror tib ARTHROSCOPY KNEE W/ MENISCUS REPAIR Left 2008 ACL RECONSTRUCTION Left 2006 autograft hami MEDICATIONS: Current Outpatient Medications Medication Instructions drospirenone-ethinyl estradiol 3-0.02 MG tablet 1 tablet, Oral, DAILY ondansetron 4 MG Tab Dispersible tablet dissolve 1 tablet ON TONGUE three times a day Current Outpatient Medications: drospirenone-ethinyl estradiol 3-0.02 MG tablet, Take 1 tablet by mouth daily., Disp: , Rfl: ondansetron 4 MG Tab Dispersible tablet, dissolve 1 tablet ON TONGUE three times a day, Disp: , Rfl: Current Facility-Administered Medications: Lactated ringers IV solution, , Intravenous, Continuous, Laura Story MD ALLERGIES: No Known Allergies FOCUSED REVIEW OF SYSTEMS: Negative for nausea, vomiting, abdominal pain and diarrhea VITAL SIGNS: Vitals: 01/13/23 0915 TempSrc: Temporal Weight: 70.8 kg (156 lb) Height: 1.676 m (5' 6 ) PREPROCEDURE PHYSICAL EXAM: AIRWAY: normal, HEART: Regular PULMONARY: Equal chest rise bilaterally without recruitment of accessory muscles ABDOMEN: Soft, nontender, nondistended ASSESSMENT: Kinjal Hutchinson is a 32 y.o. female is ready for the planned procedure. ASA Class: ASA 2 - Patient with mild systemic disease with no functional limitations PLAN: Will plan to proceed with DIAGNOSTIC UPPER ENDOSCOPY using Monitored Anesthesia Care. Laura Story MD [facility] 01-13-2023 History and physical note ENDOSCOPIC PREPROCEDURE HISTORY AND PHYSICAL HISTORY OF PRESENT ILLNESS: Kinjal Hutchinson is a 32 y.o. female seen in the pre-procedure area at [facility]. The indication for endoscopic evaluation includes: Gastroesophageal reflux disease without esophagitis PAST MEDICAL HISTORY: No past medical history on file. SURGICAL HISTORY: Past Surgical History: Procedure Laterality Date ACL RECONSTRUCTION Left 2012 allograft antieror tib ARTHROSCOPY KNEE W/ MENISCUS REPAIR Left 2008 ACL RECONSTRUCTION Left 2006 autograft hami MEDICATIONS: Current Outpatient Medications Medication Instructions drospirenone-ethinyl estradiol 3-0.02 MG tablet 1 tablet, Oral, DAILY ondansetron 4 MG Tab Dispersible tablet dissolve 1 tablet ON TONGUE three times a day Current Outpatient Medications: drospirenone-ethinyl estradiol 3-0.02 MG tablet, Take 1 tablet by mouth daily., Disp: , Rfl: ondansetron 4 MG Tab Dispersible tablet, dissolve 1 tablet ON TONGUE three times a day, Disp: , Rfl: Current Facility-Administered Medications: Lactated ringers IV solution, , Intravenous, Continuous, Laura Story MD ALLERGIES: No Known Allergies FOCUSED REVIEW OF SYSTEMS: Negative for nausea, vomiting, abdominal pain and diarrhea VITAL SIGNS: Vitals: 01/13/23 0915 TempSrc: Ailyn Weight: 70.8 kg (156 lb) Height: 1.676 m (5' 6 ) PREPROCEDURE PHYSICAL EXAM: AIRWAY: normal, HEART: Regular PULMONARY: Equal chest rise bilaterally without recruitment of accessory muscles ABDOMEN: Soft, nontender, nondistended ASSESSMENT: Kinjal Hutchinson is a 32 y.o. female is ready for the planned procedure. ASA Class: ASA 2 - Patient with mild systemic disease with no functional limitations PLAN: Will plan to proceed with DIAGNOSTIC UPPER ENDOSCOPY using Monitored Anesthesia Care. Laura Story MD documented in this encounter [facility] 01-13-2023 Nurse Note Clip down scope to bx site. [address] [facility] 01-13-2023 Miscellaneous Notes Clip down scope to bx site. 1 clip deployed. Biopsy forceps down scope. See anesthesia record for vital signs and meds given during the procedure. documented in this encounter [facility] 01-13-2023 Nurse Note Biopsy forceps down scope. [facility] 01-13-2023 Nurse Note See anesthesia record for vital signs and meds given during the procedure. [facility] 01-12-2023 History of Present illness Narrative Associated Order(s): LARGE JOINT/BURSA INJECTION AND/OR ASPIRATION: L knee Post-Procedure Diagnose(s): Primary osteoarthritis of left knee Chief Complaint Patient presents with Knee Pain Left knee pain. Euflexxa series completed on 01/13/22. Patient states she had relief for about 5-6 months. She would like to start the series again. Euflexxa injection 1 of 3. LARGE JOINT/BURSA INJECTION AND/OR ASPIRATION: L knee Date/Time: 01/12/2023 11:10 AM Performed by: Myron Anguiano MD Authorized by: Myron Anguiano MD Supporting Documentation Indications: pain and osteoarthritis Procedure Details: Location: knee - L knee Local Anesthetic: ethyl chloride (cold spray) Needle size: 22 G Approach: anterolateral Medication Verification: I have personally verified and performed the final check of the medication(s) used in this procedure prior to administration. The following items were included during the verification process for medication(s) administered: drug name, strength, volume, expiration, physical integrity and appearance of the medication(s). Medications administered: 20 mg Sodium Hyaluronate (Viscosup) 20 MG/2ML Patient tolerance: patient tolerated the procedure well with no immediate complications Consent: Consent was obtained prior to the procedure after discussion of the risks, benefits and alternatives, and expected outcomes were discussed with the patient. The possibilities of reaction to medication, bleeding, infection, the need for additional procedures, failure to diagnosis a condition, and creating a complication requiring operation were discussed with the patient. The patient concurred with the proposed plan, giving consent. Preparation: Patient was prepped in the usual sterile fashion. The patient was prepped with alcohol. Chief Complaint Patient presents with Knee Pain Left knee pain. Euflexxa series completed on 01/13/22. Patient states she had relief for about 5-6 months. She would like to start the series again. Euflexxa injection 1 of 3. LARGE JOINT/BURSA INJECTION AND/OR ASPIRATION: L knee Date/Time: 01/12/2023 11:10 AM Performed by: Myron Anguiano MD Authorized by: Myron Anguiano MD Supporting Documentation Indications: pain and osteoarthritis Procedure Details: Location: knee - L knee Local Anesthetic: ethyl chloride (cold spray) Needle size: 22 G Approach: anterolateral Medication Verification: I have personally verified and performed the final check of the medication(s) used in this procedure prior to administration. The following items were included during the verification process for medication(s) administered: drug name, strength, volume, expiration, physical integrity and appearance of the medication(s). Medications administered: 20 mg Sodium Hyaluronate (Viscosup) 20 MG/2ML Patient tolerance: patient tolerated the procedure well with no immediate complications Consent: Consent was obtained prior to the procedure after discussion of the risks, benefits and alternatives, and expected outcomes were discussed with the patient. The possibilities of reaction to medication, bleeding, infection, the need for additional procedures, failure to diagnosis a condition, and creating a complication requiring operation were discussed with the patient. The patient concurred with the proposed plan, giving consent. Preparation: Patient was prepped in the usual sterile fashion. The patient was prepped with alcohol. MARYANN Rodrigez was acting as a scribe today for this note. I have performed all essential components of the history, and physical exam. I have confirmed the diagnosis and developed a plan of care at this visit. I have reviewed the note following the visit and have add edits as appropriate to my evaluation and plan of care. Myron Anguiano MD documented in this encounter [facility] 01-05-2023 History of Present illness Narrative Chief Complaint Patient presents with Follow-up Left knee pain. Euflexxa series completed on 01/13/22. Patient states she had relief for about 5-6 months. She would like to start the series again. HPI: Patient presents in follow-up for left knee pain. Euflexxa series completed on 01/13/2022. Patient states that she had relief for approximately 5-6 months. She is here today to discuss options for repeating the series. To recap previous visit: Patient presents In follow-up for left knee pain. Completed a Euflexxa series on 06/16/21. Patient states that the injection helped with the pain significantly for several months. The pain has returned. She is requesting a repeat U flexes series beginning today. Today will be dose 1 of 3. Vitals: 01/05/23 1014 Weight: 70.8 kg (156 lb) Height: 1.676 m (5' 6 ) Physical Exam: Knee Exam: left ROM: 0-120. Quad tone: Fair. Calf supple and nontender. No effusion. Palpation: Mild medial joint line tenderness, nontender laterally Emmanuel's: Negative Posterior Drawer: Negative Varus/Valgus stress: Negative Camila's: Mildly Positive Patellar apprehension: Negative Patellar compression: Positive Distally neurovascular intact with 2+ DP pulse and full sensation in the DP/SP/Tibial nerve distributions. Review of Images: See procedure note Assessment: ICD-10-CM 1. Primary osteoarthritis of left knee M17.12 Plan: At this time, we have reviewed the past medical notes pertaining to her chief complaint today, as well as her MRI which shows signs of advanced medial compartment knee OA as well as history of ACL reconstruction. We have discussed options with the patient today from conservative to surgical. At this time we have discussed the natural history of knee OA and possible treatment options from conservative to surgical TKA. The patient has failed intraarticular steroid injections and over the counter pain medications. She received significant relief from the Euflexxa series completed in December of 2021. They understand a total knee replacement is an option, although they would like to continue with conservative management. Due to this, we will begin the approval process for BENJAMIN injections. They will follow up with us for BENJAMIN injections once approved. Otherwise, they will call the clinic if any further issues or questions arise. Chief Complaint Patient presents with Follow-up Left knee pain. Euflexxa series completed on 01/13/22. Patient states she had relief for about 5-6 months. She would like to start the series again. HPI: Patient presents in follow-up for left knee pain. Euflexxa series completed on 01/13/2022. Patient states that she had relief for approximately 5-6 months. She is here today to discuss options for repeating the series. To recap previous visit: Patient presents In follow-up for left knee pain. Completed a Euflexxa series on 06/16/21. Patient states that the injection helped with the pain significantly for several months. The pain has returned. She is requesting a repeat U flexes series beginning today. Today will be dose 1 of 3. Vitals: 01/05/23 1014 Weight: 70.8 kg (156 lb) Height: 1.676 m (5' 6 ) Physical Exam: Knee Exam: left ROM: 0-120. Quad tone: Fair. Calf supple and nontender. No effusion. Palpation: Mild medial joint line tenderness, nontender laterally Emmanuel's: Negative Posterior Drawer: Negative Varus/Valgus stress: Negative Caimla's: Mildly Positive Patellar apprehension: Negative Patellar compression: Positive Distally neurovascular intact with 2+ DP pulse and full sensation in the DP/SP/Tibial nerve distributions. Review of Images: See procedure note Assessment: ICD-10-CM 1. Primary osteoarthritis of left knee M17.12 Plan: At this time, we have reviewed the past medical notes pertaining to her chief complaint today, as well as her MRI which shows signs of advanced medial compartment knee OA as well as history of ACL reconstruction. We have discussed options with the patient today from conservative to surgical. At this time we have discussed the natural history of knee OA and possible treatment options from conservative to surgical TKA. The patient has failed intraarticular steroid injections and over the counter pain medications. She received significant relief from the Euflexxa series completed in December of 2021. They understand a total knee replacement is an option, although they would like to continue with conservative management. Due to this, we will begin the approval process for BENJAMIN injections. They will follow up with us for BENJAMIN injections once approved. Otherwise, they will call the clinic if any further issues or questions arise. Christian Carrero AT was acting as a scribe today for this note. I have performed all essential components of the history, and physical exam. I have confirmed the diagnosis and developed a plan of care at this visit. I have reviewed the note following the visit and have add edits as appropriate to my evaluation and plan of care. Myron Anguiano MD documented in this encounter [facility] 12-17-2022 History of Present illness Narrative Nurse Note: Review of Systems Gastrointestinal: Positive for nausea and vomiting. All other systems reviewed and are negative. Nursing Assessment: Physical Exam iKnjal Hutchinson is a 32 y.o. female Pt is here for a hiatal hernia. First noticed about a month ago. Imaging: EGD 10 years ago. Starting to bother her now. About a month ago had reflux and a lot of pressure. denies Pain. denies Chills/Fever. complains of Nausea/Vomiting. denies Constipation/Diarrhea. documented in this encounter [facility] 12-17-2022 Instructions Parisa Armijo LPN - 12/17/2022 1:00 PM EDT EGD INSTRUCTIONS Your EGD is scheduled at [facility] on Wednesday01/13/23. The hospital will call you the day before your scheduled date to tell you what time to arrive. They usually don't call until afternoon. You can call the office after 3pm if you have not heard from the hospital. THE DAY BEFORE: Eat a light/medium dinner. Avoid foods that may upset your stomach. DO NOT DRINK ALCOHOL. NOTHING to eat or drink after midnight. NO TOBACCO PRODUCT AFTER MIDNIGHT. THE MORNING OF: Do not wear jewelry, earrings, watches, etc. Wear comfortable clothing and shoes. (no heels). BLOOD THINNERS: Stop taking COUMADIN, PLAVIX, BRILINTA (TICAGRELOR) AND IRON 5 days prior to procedure. Stop taking ELIQUIS and XARELTO 48 hours prior to procedure. Diabetic Medications are NOT to be taken the morning of test. APPETITE SUPPRESSANT: Stop taking Phentermine or any other appetite suppressants 7 days prior to procedure or procedure will be canceled. This also includes stopping semiglutide (Ozempic and Wegovy), Tirzepatide (Mounjaro), Trulicity, Victoza, Exenatide (Byetta) and Liraglutide (Saxenda) 7 days prior to procedure or procedure will be canceled. YOU MUST HAVE A RESPONSIBLE ADULT DRIVE YOU HOME. IF YOU DO NOT HAVE SOMEONE TO DRIVE YOU, YOUR PROCEDURE WILL BE CANCELLED. PUBLIC TRANSPORT IS NOT PERMITTED, UNLESS YOU HAVE A FAMILY MEMBER OR FRIEND WITH YOU. If you have any questions, you become ill or have to cancel your procedure, please call the office at . Prior authorization is performed on all procedures and surgeries, but coverage and benefits is up to the patient to call and obtain from their insurance company. IF YOU ARE EXPERIENCING FLU LIKE SYMPTOMS PRIOR TO PROCEDURE PLEASE CALL OFFICE SO WE CAN SCHEDULE YOU FOR COVID TESTING. THANK YOU. The following attachments cannot be sent through Care Everywhere.EGD ([facility]) ([place])documented in this encounter [facility] 01-13-2022 History of Present illness Narrative Associated Order(s): LARGE JOINT/BURSA INJECTION AND/OR ASPIRATION: L knee Post-Procedure Diagnose(s): Primary osteoarthritis of left knee Chief Complaint Patient presents with Knee Pain Left knee. Euflexxa injection 3 of 3. LARGE JOINT/BURSA INJECTION AND/OR ASPIRATION: L knee Date/Time: 01/13/2022 1:00 PM Supporting Documentation Indications: pain and osteoarthritis Procedure Details: Location: knee - L knee Local Anesthetic: ethyl chloride (cold spray) Needle size: 22 G Approach: anterolateral Medication Verification: I have personally verified and performed the final check of the medication(s) used in this procedure prior to administration. The following items were included during the verification process for medication(s) administered: drug name, strength, volume, expiration, physical integrity and appearance of the medication(s). Medications administered: 20 mg Sodium Hyaluronate 20 MG/2ML Patient tolerance: patient tolerated the procedure well with no immediate complications Consent: Consent was obtained prior to the procedure after discussion of the risks, benefits and alternatives, and expected outcomes were discussed with the patient. The possibilities of reaction to medication, bleeding, infection, the need for additional procedures, failure to diagnosis a condition, and creating a complication requiring operation were discussed with the patient. The patient concurred with the proposed plan, giving consent. Preparation: Patient was prepped in the usual sterile fashion. The patient was prepped with alcohol. Patient was seen and evaluated with the CLIENT DEVELOPMENT DIRECTOR or AT/OTC at today's visit. I performed all essential elements of the history and physical exam at today's visit. I have confirmed the diagnosis at today's visit. I have determined the plan of care for today's visit. Please refer to the CLIENT DEVELOPMENT DIRECTOR or AT/OTC's note for further details from today's visit. I have reviewed the note following the visit have added edits as appropriate to my evaluation and plan of care. Chief Complaint Patient presents with Knee Pain Left knee. Euflexxa injection 3 of 3. LARGE JOINT/BURSA INJECTION AND/OR ASPIRATION: L knee Date/Time: 01/13/2022 1:00 PM Supporting Documentation Indications: pain and osteoarthritis Procedure Details: Location: knee - L knee Local Anesthetic: ethyl chloride (cold spray) Needle size: 22 G Approach: anterolateral Medication Verification: I have personally verified and performed the final check of the medication(s) used in this procedure prior to administration. The following items were included during the verification process for medication(s) administered: drug name, strength, volume, expiration, physical integrity and appearance of the medication(s). Medications administered: 20 mg Sodium Hyaluronate 20 MG/2ML Patient tolerance: patient tolerated the procedure well with no immediate complications Consent: Consent was obtained prior to the procedure after discussion of the risks, benefits and alternatives, and expected outcomes were discussed with the patient. The possibilities of reaction to medication, bleeding, infection, the need for additional procedures, failure to diagnosis a condition, and creating a complication requiring operation were discussed with the patient. The patient concurred with the proposed plan, giving consent. Preparation: Patient was prepped in the usual sterile fashion. The patient was prepped with alcohol. documented in this encounter [facility] 01-05-2022 History of Present illness Narrative Associated Order(s): LARGE JOINT/BURSA INJECTION AND/OR ASPIRATION: L knee Post-Procedure Diagnose(s): Primary osteoarthritis of left knee Chief Complaint Patient presents with Knee Pain Left knee BENJAMIN #2. Reports having pain in the medial side of knee. LARGE JOINT/BURSA INJECTION AND/OR ASPIRATION: L knee Date/Time: 01/05/2022 1:00 PM Supporting Documentation Indications: pain and osteoarthritis Procedure Details: Location: knee - L knee Local Anesthetic: ethyl chloride (cold spray) Needle size: 22 G Approach: anterolateral Medication Verification: I have personally verified and performed the final check of the medication(s) used in this procedure prior to administration. The following items were included during the verification process for medication(s) administered: drug name, strength, volume, expiration, physical integrity and appearance of the medication(s). Medications administered: 20 mg Sodium Hyaluronate 20 MG/2ML Patient tolerance: patient tolerated the procedure well with no immediate complications Consent: Consent was obtained prior to the procedure after discussion of the risks, benefits and alternatives, and expected outcomes were discussed with the patient. The possibilities of reaction to medication, bleeding, infection, the need for additional procedures, failure to diagnosis a condition, and creating a complication requiring operation were discussed with the patient. The patient concurred with the proposed plan, giving consent. Preparation: Patient was prepped in the usual sterile fashion. The patient was prepped with alcohol. documented in this encounter [facility] 12-29-2021 History of Present illness Narrative Chief Complaint Patient presents with Knee Pain Left knee - Completed Eufexxa series on 06/16/21. Patient states that the injections helped with the pain but the pain has returned and is requesting a repeat series. Today will be dose 1 of 3. HPI: Patient presents In follow-up for left knee pain. Completed a Euflexxa series on 06/16/21. Patient states that the injection helped with the pain significantly for several months. The pain has returned. She is requesting a repeat U flexes series beginning today. Today will be dose 1 of 3. To recap previous visit: Patient presents In follow-up for left knee pain. Patient states that she denies any new problems or concerns. She is here today to begin her Euflexxa series. Vitals: 12/29/21 1353 Height: 1.676 m (5' 6 ) Physical Exam: Knee Exam: left ROM: 0-120. Quad tone: Fair. Calf supple and nontender. No effusion. Palpation: Mild medial joint line tenderness, nontender laterally Emmanuel's: Negative Posterior Drawer: Negative Varus/Valgus stress: Negative Camila's: Mildly Positive Patellar apprehension: Negative Patellar compression: Negative Distally neurovascular intact with 2+ DP pulse and full sensation in the DP/SP/Tibial nerve distributions. Review of Images: See procedure note Assessment: ICD-10-CM 1. Primary osteoarthritis of left knee M17.12 Plan: At this time, we have reviewed the past medical notes pertaining to her chief complaint today, as well as her MRI which shows signs of advanced medial compartment knee OA as well as history of ACL reconstruction. We have discussed options with the patient today from conservative to surgical. Today we are offering the patient left knee hyaluronic acid injections which she is electing to proceed with. We will begin today with Euflexxa No. 1 of 3. She will follow-up in one week for Euflexxa No. 2 in 2 weeks for Euflexxa No. 3 in the left knee. Call the office with any questions or concerns meantime. Associated Order(s): LARGE JOINT/BURSA INJECTION AND/OR ASPIRATION: L knee Post-Procedure Diagnose(s): Primary osteoarthritis of left knee LARGE JOINT/BURSA INJECTION AND/OR ASPIRATION: L knee Date/Time: 12/29/2021 1:30 PM Supporting Documentation Indications: pain and osteoarthritis Procedure Details: Location: knee - L knee Local Anesthetic: ethyl chloride (cold spray) Needle size: 22 G Approach: anterolateral Medication Verification: I have personally verified and performed the final check of the medication(s) used in this procedure prior to administration. The following items were included during the verification process for medication(s) administered: drug name, strength, volume, expiration, physical integrity and appearance of the medication(s). Medications administered: 20 mg Sodium Hyaluronate 20 MG/2ML Patient tolerance: patient tolerated the procedure well with no immediate complications Consent: Consent was obtained prior to the procedure after discussion of the risks, benefits and alternatives, and expected outcomes were discussed with the patient. The possibilities of reaction to medication, bleeding, infection, the need for additional procedures, failure to diagnosis a condition, and creating a complication requiring operation were discussed with the patient. The patient concurred with the proposed plan, giving consent. Preparation: Patient was prepped in the usual sterile fashion. The patient was prepped with alcohol. Chief Complaint Patient presents with Knee Pain Left knee - Completed Eufexxa series on 06/16/21. Patient states that the injections helped with the pain but the pain has returned and is requesting a repeat series. Today will be dose 1 of 3. HPI: Patient presents In follow-up for left knee pain. Completed a Euflexxa series on 06/16/21. Patient states that the injection helped with the pain significantly for several months. The pain has returned. She is requesting a repeat U flexes series beginning today. Today will be dose 1 of 3. To recap previous visit: Patient presents In follow-up for left knee pain. Patient states that she denies any new problems or concerns. She is here today to begin her Euflexxa series. Vitals: 12/29/21 1353 Height: 1.676 m (5' 6 ) Physical Exam: Knee Exam: left ROM: 0-120. Quad tone: Fair. Calf supple and nontender. No effusion. Palpation: Mild medial joint line tenderness, nontender laterally Emmanuel's: Negative Posterior Drawer: Negative Varus/Valgus stress: Negative Camila's: Mildly Positive Patellar apprehension: Negative Patellar compression: Negative Distally neurovascular intact with 2+ DP pulse and full sensation in the DP/SP/Tibial nerve distributions. Review of Images: See procedure note Assessment: ICD-10-CM 1. Primary osteoarthritis of left knee M17.12 Plan: At this time, we have reviewed the past medical notes pertaining to her chief complaint today, as well as her MRI which shows signs of advanced medial compartment knee OA as well as history of ACL reconstruction. We have discussed options with the patient today from conservative to surgical. Today we are offering the patient left knee hyaluronic acid injections which she is electing to proceed with. We will begin today with Euflexxa No. 1 of 3. She will follow-up in one week for Euflexxa No. 2 in 2 weeks for Euflexxa No. 3 in the left knee. Call the office with any questions or concerns meantime. LARGE JOINT/BURSA INJECTION AND/OR ASPIRATION: L knee Date/Time: 12/29/2021 1:30 PM Supporting Documentation Indications: pain and osteoarthritis Procedure Details: Location: knee - L knee Local Anesthetic: ethyl chloride (cold spray) Needle size: 22 G Approach: anterolateral Medication Verification: I have personally verified and performed the final check of the medication(s) used in this procedure prior to administration. The following items were included during the verification process for medication(s) administered: drug name, strength, volume, expiration, physical integrity and appearance of the medication(s). Medications administered: 20 mg Sodium Hyaluronate 20 MG/2ML Patient tolerance: patient tolerated the procedure well with no immediate complications Consent: Consent was obtained prior to the procedure after discussion of the risks, benefits and alternatives, and expected outcomes were discussed with the patient. The possibilities of reaction to medication, bleeding, infection, the need for additional procedures, failure to diagnosis a condition, and creating a complication requiring operation were discussed with the patient. The patient concurred with the proposed plan, giving consent. Preparation: Patient was prepped in the usual sterile fashion. The patient was prepped with alcohol. MARYANN Rodrigez was acting as a scribe today for this note. I have performed all essential components of the history, and physical exam. I have confirmed the diagnosis and developed a plan of care at this visit. I have reviewed the note following the visit and have add edits as appropriate to my evaluation and plan of care. Myron Anguiano MD documented in this encounter [facility] 06-16-2021 History of Present illness Narrative Chief Complaint Patient presents with Knee Pain Left knee pain, Euflexxa #3 today. Pt denies any new concerns. LARGE JOINT/BURSA INJECTION AND/OR ASPIRATION: L knee Date/Time: 06/16/2021 11:10 AM Supporting Documentation Indications: pain and osteoarthritis Procedure Details: Location: knee - L knee Local Anesthetic: ethyl chloride (cold spray) Needle size: 22 G Approach: anterolateral Medication Verification: I have personally verified and performed the final check of the medication(s) used in this procedure prior to administration. The following items were included during the verification process for medication(s) administered: drug name, strength, volume, expiration, physical integrity and appearance of the medication(s). Medications administered: 20 mg Sodium Hyaluronate 20 MG/2ML Patient tolerance: patient tolerated the procedure well with no immediate complications Consent: Consent was obtained prior to the procedure after discussion of the risks, benefits and alternatives, and expected outcomes were discussed with the patient. The possibilities of reaction to medication, bleeding, infection, the need for additional procedures, failure to diagnosis a condition, and creating a complication requiring operation were discussed with the patient. The patient concurred with the proposed plan, giving consent. Preparation: Patient was prepped in the usual sterile fashion. The patient was prepped with alcohol. MARYANN Rodrigez was acting as a scribe today for this note. I have performed all essential components of the history, and physical exam. I have confirmed the diagnosis and developed a plan of care at this visit. I have reviewed the note following the visit and have add edits as appropriate to my evaluation and plan of care. Myron Anguiano MD Associated Order(s): LARGE JOINT/BURSA INJECTION AND/OR ASPIRATION: L knee Post-Procedure Diagnose(s): Primary osteoarthritis of left knee Chief Complaint Patient presents with Knee Pain Left knee pain, Euflexxa #3 today. Pt denies any new concerns. LARGE JOINT/BURSA INJECTION AND/OR ASPIRATION: L knee Date/Time: 06/16/2021 11:10 AM Supporting Documentation Indications: pain and osteoarthritis Procedure Details: Location: knee - L knee Local Anesthetic: ethyl chloride (cold spray) Needle size: 22 G Approach: anterolateral Medication Verification: I have personally verified and performed the final check of the medication(s) used in this procedure prior to administration. The following items were included during the verification process for medication(s) administered: drug name, strength, volume, expiration, physical integrity and appearance of the medication(s). Medications administered: 20 mg Sodium Hyaluronate 20 MG/2ML Patient tolerance: patient tolerated the procedure well with no immediate complications Consent: Consent was obtained prior to the procedure after discussion of the risks, benefits and alternatives, and expected outcomes were discussed with the patient. The possibilities of reaction to medication, bleeding, infection, the need for additional procedures, failure to diagnosis a condition, and creating a complication requiring operation were discussed with the patient. The patient concurred with the proposed plan, giving consent. Preparation: Patient was prepped in the usual sterile fashion. The patient was prepped with alcohol. documented in this encounter [facility] 06-02-2021 History of Present illness Narrative Patient was seen and evaluated with the CLIENT DEVELOPMENT DIRECTOR or AT/OTC at today's visit. I performed all essential elements of the history and physical exam at today's visit. I have confirmed the diagnosis at today's visit. I have determined the plan of care for today's visit. Please refer to the CLIENT DEVELOPMENT DIRECTOR or AT/OTC's note for further details from today's visit. I have reviewed the note following the visit have added edits as appropriate to my evaluation and plan of care. Chief Complaint Patient presents with Knee Pain left knee pain, Euflexxa #2. denies any new concerns. LARGE JOINT/BURSA INJECTION AND/OR ASPIRATION: L knee Date/Time: 06/02/2021 11:10 AM Supporting Documentation Indications: pain and osteoarthritis Procedure Details: Location: knee - L knee Local Anesthetic: ethyl chloride (cold spray) Needle size: 22 G Approach: anterolateral Medication Verification: I have personally verified and performed the final check of the medication(s) used in this procedure prior to administration. The following items were included during the verification process for medication(s) administered: drug name, strength, volume, expiration, physical integrity and appearance of the medication(s). Medications administered: 20 mg Sodium Hyaluronate 20 MG/2ML Patient tolerance: patient tolerated the procedure well with no immediate complications Consent: Consent was obtained prior to the procedure after discussion of the risks, benefits and alternatives, and expected outcomes were discussed with the patient. The possibilities of reaction to medication, bleeding, infection, the need for additional procedures, failure to diagnosis a condition, and creating a complication requiring operation were discussed with the patient. The patient concurred with the proposed plan, giving consent. Preparation: Patient was prepped in the usual sterile fashion. The patient was prepped with alcohol. Associated Order(s): LARGE JOINT/BURSA INJECTION AND/OR ASPIRATION: L knee Post-Procedure Diagnose(s): Primary osteoarthritis of left knee Chief Complaint Patient presents with Knee Pain left knee pain, Euflexxa #2. denies any new concerns. LARGE JOINT/BURSA INJECTION AND/OR ASPIRATION: L knee Date/Time: 06/02/2021 11:10 AM Supporting Documentation Indications: pain and osteoarthritis Procedure Details: Location: knee - L knee Local Anesthetic: ethyl chloride (cold spray) Needle size: 22 G Approach: anterolateral Medication Verification: I have personally verified and performed the final check of the medication(s) used in this procedure prior to administration. The following items were included during the verification process for medication(s) administered: drug name, strength, volume, expiration, physical integrity and appearance of the medication(s). Medications administered: 20 mg Sodium Hyaluronate 20 MG/2ML Patient tolerance: patient tolerated the procedure well with no immediate complications Consent: Consent was obtained prior to the procedure after discussion of the risks, benefits and alternatives, and expected outcomes were discussed with the patient. The possibilities of reaction to medication, bleeding, infection, the need for additional procedures, failure to diagnosis a condition, and creating a complication requiring operation were discussed with the patient. The patient concurred with the proposed plan, giving consent. Preparation: Patient was prepped in the usual sterile fashion. The patient was prepped with alcohol. documented in this encounter [facility] 05-26-2021 History of Present illness Narrative Chief Complaint Patient presents with Knee Pain Left knee, start Euflexxa series #1. Pt states denies any new concerns just ready to start euflexxa series today. HPI: Patient presents In follow-up for left knee pain. Patient states that she denies any new problems or concerns. She is here today to begin her Euflexxa series. To recap previous visit: Patient presents with left knee pain. Patient states the pain has been constant over the past 3 months. She states she has had 3 knee arthroscopies performed on this knee. States she first had ACL reconstruction with autograft, followed by a meniscus repair, and then a revision ACL reconstruction with allograft. Patient states that her knee pain originates along the medial joint line and radiates throughout the knee. Vitals: 05/26/21 1152 Temp: 98.7 degrees F (37.1 degrees C) TempSrc: Temporal Weight: 66.7 kg (147 lb) Height: 1.676 m (5' 6 ) Physical Exam: Knee Exam: left ROM: 0-120. Quad tone: Fair. Calf supple and nontender. No effusion. Palpation: Mild medial joint line tenderness, nontender laterally Emmanuel's: Negative Posterior Drawer: Negative Varus/Valgus stress: Negative Camila's: Mildly Positive Patellar apprehension: Negative Patellar compression: Negative Distally neurovascular intact with 2+ DP pulse and full sensation in the DP/SP/Tibial nerve distributions. Review of Images: See procedure note Assessment: ICD-10-CM 1. Primary osteoarthritis of left knee M17.12 Plan: At this time, we have reviewed the past medical notes pertaining to her chief complaint today, as well as her MRI which shows signs of advanced medial compartment knee OA as well as history of ACL reconstruction. We have discussed options with the patient today from conservative to surgical. Today we are offering the patient left knee hyaluronic acid injections which she is electing to proceed with. We will begin today with Euflexxa No. 1 of 3. She will follow-up in one week for Euflexxa No. 2 in 2 weeks for Euflexxa No. 3 in the left knee. Call the office with any questions or concerns meantime. LARGE JOINT/BURSA INJECTION AND/OR ASPIRATION: L knee Date/Time: 05/26/2021 11:10 AM Supporting Documentation Indications: pain and osteoarthritis Procedure Details: Location: knee - L knee Local Anesthetic: ethyl chloride (cold spray) Needle size: 22 G Approach: anterolateral Medication Verification: I have personally verified and performed the final check of the medication(s) used in this procedure prior to administration. The following items were included during the verification process for medication(s) administered: drug name, strength, volume, expiration, physical integrity and appearance of the medication(s). Medications administered: 20 mg Sodium Hyaluronate 20 MG/2ML Patient tolerance: patient tolerated the procedure well with no immediate complications Consent: Consent was obtained prior to the procedure after discussion of the risks, benefits and alternatives, and expected outcomes were discussed with the patient. The possibilities of reaction to medication, bleeding, infection, the need for additional procedures, failure to diagnosis a condition, and creating a complication requiring operation were discussed with the patient. The patient concurred with the proposed plan, giving consent. Preparation: Patient was prepped in the usual sterile fashion. The patient was prepped with alcohol. MARYANN Rodrigez was acting as a scribe today for this note. I have performed all essential components of the history, and physical exam. I have confirmed the diagnosis and developed a plan of care at this visit. I have reviewed the note following the visit and have add edits as appropriate to my evaluation and plan of care. Myron Anguiano MD Associated Order(s): LARGE JOINT/BURSA INJECTION AND/OR ASPIRATION: L knee Post-Procedure Diagnose(s): Primary osteoarthritis of left knee LARGE JOINT/BURSA INJECTION AND/OR ASPIRATION: L knee Date/Time: 05/26/2021 11:10 AM Supporting Documentation Indications: pain and osteoarthritis Procedure Details: Location: knee - L knee Local Anesthetic: ethyl chloride (cold spray) Needle size: 22 G Approach: anterolateral Medication Verification: I have personally verified and performed the final check of the medication(s) used in this procedure prior to administration. The following items were included during the verification process for medication(s) administered: drug name, strength, volume, expiration, physical integrity and appearance of the medication(s). Medications administered: 20 mg Sodium Hyaluronate 20 MG/2ML Patient tolerance: patient tolerated the procedure well with no immediate complications Consent: Consent was obtained prior to the procedure after discussion of the risks, benefits and alternatives, and expected outcomes were discussed with the patient. The possibilities of reaction to medication, bleeding, infection, the need for additional procedures, failure to diagnosis a condition, and creating a complication requiring operation were discussed with the patient. The patient concurred with the proposed plan, giving consent. Preparation: Patient was prepped in the usual sterile fashion. The patient was prepped with alcohol. Chief Complaint Patient presents with Knee Pain Left knee, start Euflexxa series #1. Pt states denies any new concerns just ready to start euflexxa series today. HPI: Patient presents In follow-up for left knee pain. Patient states that she denies any new problems or concerns. She is here today to begin her Euflexxa series. To recap previous visit: Patient presents with left knee pain. Patient states the pain has been constant over the past 3 months. She states she has had 3 knee arthroscopies performed on this knee. States she first had ACL reconstruction with autograft, followed by a meniscus repair, and then a revision ACL reconstruction with allograft. Patient states that her knee pain originates along the medial joint line and radiates throughout the knee. Vitals: 05/26/21 1152 Temp: 98.7 degrees F (37.1 degrees C) TempSrc: Temporal Weight: 66.7 kg (147 lb) Height: 1.676 m (5' 6 ) Physical Exam: Knee Exam: left ROM: 0-120. Quad tone: Fair. Calf supple and nontender. No effusion. Palpation: Mild medial joint line tenderness, nontender laterally Emmanuel's: Negative Posterior Drawer: Negative Varus/Valgus stress: Negative Camila's: Mildly Positive Patellar apprehension: Negative Patellar compression: Negative Distally neurovascular intact with 2+ DP pulse and full sensation in the DP/SP/Tibial nerve distributions. Review of Images: See procedure note Assessment: ICD-10-CM 1. Primary osteoarthritis of left knee M17.12 Plan: At this time, we have reviewed the past medical notes pertaining to her chief complaint today, as well as her MRI which shows signs of advanced medial compartment knee OA as well as history of ACL reconstruction. We have discussed options with the patient today from conservative to surgical. Today we are offering the patient left knee hyaluronic acid injections which she is electing to proceed with. We will begin today with Euflexxa No. 1 of 3. She will follow-up in one week for Euflexxa No. 2 in 2 weeks for Euflexxa No. 3 in the left knee. Call the office with any questions or concerns meantime. documented in this encounter [facility] Evaluation + Plan note Future Appointments Appointment Date:01/24/2022 03:00:00 PM Scheduled Provider: Location:[facility] Appointment Type:US Thyroid Future Scheduled TestsUS Thyroid 01/24/22 [facility] Evaluation note Diagnosis Primary osteoarthritis of left knee- Primary Primary localized osteoarthrosis, lower leg [facility] Diagnosis Primary osteoarthritis of left knee- Primary Primary localized osteoarthrosis, lower leg [facility] Diagnosis Primary osteoarthritis of left knee- Primary Primary localized osteoarthrosis, lower leg [facility] Diagnosis Gastroesophageal reflux disease without esophagitis- Primary Esophageal reflux [facility] Diagnosis Primary osteoarthritis of left knee- Primary Primary localized osteoarthrosis, lower leg [facility] Diagnosis Gastroesophageal reflux disease without esophagitis Esophageal reflux [facility] Diagnosis Primary osteoarthritis of left knee- Primary Primary localized osteoarthrosis, lower leg [facility] Diagnosis Primary osteoarthritis of left knee- Primary Primary localized osteoarthrosis, lower leg [facility] Diagnosis Abdominal pain, acute Abdominal pain, unspecified site [facility] Diagnosis Abdominal pain, acute Abdominal pain, unspecified site [facility] Diagnosis Hepatic steatosis- Primary Other chronic nonalcoholic liver disease Gallbladder sludge Calculus of gallbladder without mention of cholecystitis or obstruction [facility] Narrative No data available for this section [facility] Hospital Discharge instructions No data available for this section [facility] Progress note No data available for this section [facility] Summary Purpose Family History No Family History Records FoundNo Family History Records FoundNo Family History Records FoundNo Family History Records FoundNo Family History Records Found No data available for this section No Family History Records FoundNo Family History Records Found Advance Directives Documents on File Type Date Recorded Patient Environmental Geologist Expl anation Advance Directives and Living Will History of Present Illness * Gonsalo Burt MD - 05/18/2019 1:23 PM EST Chief Complaint: My knee is sore History of Present Illness: Kinjal Bob is a 29 y.o. female who has left knee pain for months. She reports that her pain is ongoing and significant, but stable. The pain is alleviated by rest andpain medication and worsened by activity and movement. The pain is 5/10 in severity and dull and radiating. She currently is completely weight bearing on this injury, and she has been working on [employer]. The patient reports no mechanical symptoms. She has had 2 ACL reconstructions on this knee. Her pain is primarily medial. Review of Systems: The following system(s) were reviewed and pertinent findings noted: Constitutional:No fever, no weight loss Eyes:No diplopia. No redness. CV:No chest pain. No ankle swelling Resp:No dyspnea. No wheezing GI:No abdominal pain.No abdominal distention :No dysuria Neuro:No headache. Awake alert oriented X3 Integumentary:No skin rash Heme/lymphatic:No apparent lymphadenopathy Allergic/Immunologic:No hives Psych:No unusual mood swings Past History: The patient's past medical history, surgical history, medications, and allergies werereviewed today in the [employer] system and confirmed. Social History: Social History Tobacco Use Smoking status: Not on file Substance Use Topics Alcohol use: Not on file Drug use: Not on file Diagnostic Studies: No results found. Exam: PACU Vitals 05/16/19 1133 BP: 95/80 Pulse: 77 Temp: 98.3 F (36.8 C) SpO2: 98% Body mass index is 22.6 kg/m . Normocephalic, atraumatic, alert and answering questions accordingly. She is in a pleasant mood with appropriate affect. She is ambulating unassisted, and balance appears to be without issue. left Knee Swelling: Mild Effusion: Negative Tenderness: Medial joint line, Medial collateral ligament, Medial hamstring, Pes anserinus and Medial retinaculum Patellofemoral tracking: Normal Range of Motion: Extension: Normal Flexion: Normal Strength: Extension 5/5 Flexion 5/5 McMurrays: negative Anterior Lachmann: negative Dial Test: negative Posterior Drawer: negative Varus Stress Test: negative Valgus Stress Test: negative Assessment: Kinjal Bob presents with left knee pain consistent with pes anserine bursitis as well as MCL sprain (resolving) Plan: I recommended nonoperative management for the knee, and recommended injection of the pes anserine bursa to assist her pain relief. She does not have any instability that I am concerned about, but if injection doesn't work, then she may require MRI for evaluation of medial meniscus. Follow up: PRN. Continue mobilization: without restrictions; this was encouraged and exercises were reviewed in theoffice today. She can use a knee brace PRN. See orders for this visit as documented in the electronic medical record. documented in this encounter Assessments Diagnosis Pes anserine bursitis Reason for Referral Specialty Diagnoses / Procedures Referred By Contac t Referred To Contact Diagnoses Abdominal pain, acute Procedures US ABDOMEN RUQ/LIVER/GB Laura Story MD [address] [id number] Referral ID Status Reason Start Date Expiration Date V isits Requested Visits Authorized [id number] New Request 02/04/2023 02/29/2024 1 1 Specialty Diagnoses / Procedures Referred By Contac t Referred To Contact Diagnoses Abdominal pain, acute Procedures NUC HEPATOBILIARY WITH EJECTION FRACTION [place] HEPATOBIL SYST IMAG INC GB W/PHARMA INTERVENJ Laura Story MD [address] [place] [address] Referral ID Status Reason Start Date Expiration Date V isits Requested Visits Authorized [id number] New Request 02/04/2023 02/29/2024 1 1 Specialty Diagnoses / Procedures Referred By Contac t Referred To Contact Diagnoses Gastroesophageal reflux disease without esophagitis Procedures DIAGNOSTIC UPPER ENDOSCOPY OH ESOPHAGOGASTRODUODENOSCOPY TRANSORAL DIAGNOSTIC Laura Story MD [address] [place] [address] Referral ID Status Reason Start Date Expiration Date Visits Re quested Visits Authorized [id number] Closed 12/18/2022 01/12/2024 1 1 Additional Source Comments INFORMATION SOURCE (unrecogn ized section and content) DATE CREATED AUTHOR 10/11/2017 [facility] DATE CREATED AUTHOR AUTHOR'S ORGANIZ ATION 05/16/2019 [facility] DATE CREATED AUTHOR AUTHOR'S ORGANIZ ATION 05/17/2019 [facility] DATE CREATED AUTHOR AUTHOR'S ORGANIZ ATION 02/19/2021 [facility] DATE CREATED AUTHOR AUTHOR'S ORGANIZ ATION 01/21/2022 [facility] DATE CREATED AUTHOR AUTHOR'S ORGANIZ ATION 11/20/2023 [facility] DATE CREATED AUTHOR AUTHOR'S ORGANIZ ATION 01/31/2024 [facility] Reason for Visit (unrecogniz ed section and content) Reason Comments Pain Reason Comments Knee Pain Left knee, start Euf lexxa series #1. Pt states denies any new concerns just ready to start euflexxa series today. Reason Comments Knee Pain left knee pain, Eufl exxa #2. denies any new concerns. Reason Comments Knee Pain Left knee pain, Eufl exxa #3 today. Pt denies any new concerns. Reason Comments Knee Pain Left knee BENJAMIN #2. Rep orts having pain in the medial side of knee. Reason Comments Knee Pain Left knee - Complete d Eufexxa series on 06/16/21. Patient states that the injections helped with the pain but the pain has returned and is requesting a repeat series. Today will be dose 1 of 3. Reason Comments Knee Pain Left knee. Euflexxa injection 3 of 3. Reason Comments New Patient Reason Comments Follow-up Left knee pain. Eufl exxa series completed on 01/13/22. Patient states she had relief for about 5-6 months. She would like to start the series again. Specialty Diagnoses / Procedures Referred By Anibal serra Referred To Contact Diagnoses Gastroesophageal reflux disease without esophagitis Procedures DIAGNOSTIC UPPER ENDOSCOPY [place] ESOPHAGOGASTRODUODENOSCOPY TRANSORAL DIAGNOSTIC Laura Story MD [address] [place] [address] Referral ID Status Reason Start Date Expiration Date Visits Re quested Visits Authorized [id number] Closed 12/18/2022 01/12/2024 1 1 Reason Comments Knee Pain Left knee pain. Eufl exxa series completed on 01/13/22. Patient states she had relief for about 5-6 months. She would like to start the series again. Euflexxa injection 1 of 3. Reason Comments Knee Pain Left knee Euflexxa i njection 2 of 3. Reason Comments Follow-up Reason Comments Knee Pain Left knee Euflexxa i njection 3 of 3. Specialty Diagnoses / Procedures Referred By Contac t Referred To Contact Diagnoses Abdominal pain, acute Procedures US ABDOMEN RUQ/LIVER/GB Laura Story MD [address] [place] [id number] Referral ID Status Reason Start Date Expiration Date Visits Re quested Visits Authorized [id number] Closed 02/04/2023 02/29/2024 1 1 Specialty Diagnoses / Procedures Referred By Contac t Referred To Contact Diagnoses Abdominal pain, acute Procedures NUC HEPATOBILIARY WITH EJECTION FRACTION [place] HEPATOBIL SYST IMAG INC GB W/PHARMA INTERVENJ Laura Story MD [address] [place] [address] Referral ID Status Reason Start Date Expiration Date Visits Re quested Visits Authorized [id number] Closed 02/04/2023 02/29/2024 1 1 Reason Comments Follow-up Reason Comments Knee Pain Left knee Euflexxa s eries completed 01/25/23. Patient states she had good relief with the injections but her pain started returning about 1 month ago. Reason Comments Knee Pain Left knee - Euflexxa 2 of 3. Reason Comments Knee Pain Left knee - Euflexxa 3 of 3. Care Teams (unrecognized sec tion and content) Pin Inserter Regulator Relationship Specialty Start Date End Date Luzmaria Loza CNP [address] [place] [phone] PCP - General Nurse Practitioner - Family 01/31/21 Pin Inserter Regulator Relationship Specialty Start Date End Date Luzmaria Loza CNP [address] [place] [phone] PCP - General Nurse Practitioner - Family 01/31/21 Pin Inserter Regulator Relationship Specialty Start Date End Date Luzmaria Loza CNP [address] [place] [id number] PCP - General Nurse Practitioner - Family 01/31/21 Pin Inserter Regulator Relationship Specialty Start Date End Date Luzmaria oLza CNP [address] [place] [id number] PCP - General Nurse Practitioner - Family 01/31/21 Pin Inserter Regulator Relationship Specialty Start Date End Date Luzmaria Loza CNP [address] [place] [id number] PCP - General Nurse Practitioner - [facility] 01/31/21 Pin Inserter Regulator Relationship Specialty Start Date End Date Luzmaria Loza CNP [address] [place] [id number] PCP - General Nurse Practitioner - [facility] 01/31/21 Pin Inserter Regulator Relationship Specialty Start Date End Date Luzmaria Loza CNP [address] [place] [id number] PCP - General Nurse Practitioner - [facility] 01/31/21 Pin Inserter Regulator Relationship Specialty Start Date End Date Luzmaria Loza CNP [address] [place] [id number] PCP - General Nurse Practitioner - [facility] 01/31/21 Pin Inserter Regulator Relationship Specialty Start Date End Date Luzmaria Loza CNP [address] [place] [phone] PCP - General Nurse Practitioner - Family 01/31/21 Pin Inserter Regulator Relationship Specialty Start Date End Date Luzmaria Loza CNP [address] [place] [id number] PCP - General Nurse Practitioner - Family 01/31/21 Pin Inserter Regulator Relationship Specialty Start Date End Date Luzmaria Loza CNP [address] [place] [phone] PCP - General Nurse Practitioner - Family 01/31/21 Care Team (unrecognized sect ion and content) Care Team Personnel Name: LUZMARIA LOZA APRN-CONY Position: P4 Advanced Practice Nurse Med Service: Active Provider Member Role: Primary Care Physician Address: Address: [address] [facility] [address] [place], [place] [address] Care Team Related Persons Name: MIGUEL ÁNGEL HUTCHINSON Address: [address] [phone] FOR RECORDS PERTAINING TO PATIENTS WHO ARE OR HAVE BEEN ENROLLED IN A CHEMICAL DEPENDENCY/SUBSTANCEABUSE PROGRAM, SOME INFORMATION MAY BE OMITTED. This clinical summary was aggregated from multiple sources. Caution should be exercised in using it in the provision of clinical care. This summary normalizes information from multiple sources, and as a consequence, information in this document may materially change the coding, format and clinical context of patient data. In addition, data may be omitted in some cases. CLINICAL DECISIONS SHOULD BE BASED ON THE PRIMARY CLINICAL RECORDS. [facility] [employer] provides no warranty or guarantee of the accuracy or completeness of information in this document.
== END | disposition home or self-care (01) ==
LOC: LAB 12:21
PROVIDERS: PCP Nurse Practitioner Family; Referring Provider Internal Medicine Cardiovascular Disease; Visit Provider Internal Medicine Cardiovascular Disease
DX: I49.3 Ventricular premature depolarization (principal); R00.2 Palpitations
CPT/HCPCS: 36415; 80048; 83735; 84443; 85025

== ENCOUNTER → 2024-02-25 | Outpatient (CLI) | payer OTHER, SELFPAY ==
[2024-02-25 12:31] LABS: Hepatitis B Surface Antibody Reactive
[2024-02-26 05:07] LABS: HEPATITIS B SURFACE AG Negative (Negative); Hep C Antibodies Non Reactive (Non Reactive); Hepatitis A IgM Antibody Negative (Negative); Hepatitis B Core AB IgM Negative (Negative)
== END | disposition home or self-care (01) ==
LOC: LAB 11:14
PROVIDERS: PCP Nurse Practitioner Family; Referring Provider Internal Medicine; Visit Provider Internal Medicine
DX: K76.0 Fatty (change of) liver, not elsewhere classified (principal)
CPT/HCPCS: 36415; 80074; 86706

== ENCOUNTER → 2024-02-29 | Outpatient (CLI) | payer OTHER, SELFPAY ==
--- NOTE | 2024-02-29 10:26 | STE_ITS ---
Reason For Study: ARRHYTHMIA Stress Results Protocol: John Protocol Maximum Predicted HR: 186 bpm Target HR: 158 bpm % Maximum Predicted HR: 95 % DurationHeart Rate Stage (mm:ss) (bpm) BP BASELINE 80 114/76 STAGE 1 3:00 123 124/80 STAGE 2 3:00 141 138/82 STAGE 3 3:00 155 142/82 STAGE 4 3:00 176 144/70 RECOVERY 104 122/82 Stress Duration: 12:00 mm:ss Maximum Stress HR: 176 bpm Baseline Echocardiogram Findings Stress Echo Wall motion Data Resting WM Intermediate WM Stress WM ECHO/Stress Test Echo w/o Contrast Interpretation Summary Exercise stress echo. Resting EKG demonstrates normal sinus rhythm with a rate of 89 bpm resting bloo d pressure is 114/76 mmHg. The patient exercised according to regular John protocol for total durat ion of 12 minutes completing stage IV of the John protocol the maximum heart rate attained was 1 79 bpm which was 96% of max impacted heart rate the maximum workload was 13.4 metabolic equivalents. At rest there were no ST or T wave changes noted suggest ischemia at peak exercise upsloping ST ch anges were noted we did not meet the criteria for ischemia. No clinical angina was noted. Occasiona l premature ventricular complexes were present. The peak blood pressure was 144/70 mmHg whi ch was a good blood pressure response to exercise rate-pressure product was 25,300. Stress echocardiogram. Resting echocardiogram demonstrated preserved left ventricular size and functio n estimated ejection fraction of 60% equivocal mitral valve prolapse is noted. With exercise there w as peaking of ejection fraction approximately 75% with no wall motion abnormalities present. Conclusion: Exercise stress echocardiogram with no evidence of ischemia at a high workload and no arrhythmias noted. Ordering Physician: Mehdi Cole Referring Physician: Mehdi Cole Performed By: Amna Trejo, FATEMEH, RVT
== END | disposition home or self-care (01) ==
LOC: CVS 10:25
PROVIDERS: PCP Nurse Practitioner Family; Referring Provider Internal Medicine Cardiovascular Disease; Visit Provider Internal Medicine Cardiovascular Disease
DX: I49.3 Ventricular premature depolarization (principal); R00.2 Palpitations
CPT/HCPCS: 93017; 93350

== ENCOUNTER → 2024-10-12 | Outpatient (CLI) | payer OTHER, SELFPAY ==
[2024-10-12 09:38] LABS: Estradiol 51.9 pg/mL; Free T3 3.4 pg/mL (2.18-3.98); Vitamin B12 569 pg/mL (180-914); Vitamin D,25 Hydroxy 38.4 ng/mL (30-100)
[2024-10-13 08:09] LABS: PROGESTERONE 1.7 ng/mL (.)
== END | disposition home or self-care (01) ==
LOC: LAB 07:58
PROVIDERS: PCP Nurse Practitioner Family; Referring Provider Specialist; Visit Provider Specialist
DX: E04.0 Nontoxic diffuse goiter (principal); R53.83 Other fatigue; E28.8 Other ovarian dysfunction; E55.9 Vitamin D deficiency, unspecified
CPT/HCPCS: 36415; 82306; 82607; 82627; 82670; 84144; 84403; 84432; 84439; 84443; 84445; 84481; 84482; 86376; 86800; 82626

== ENCOUNTER → 2024-12-15 | Outpatient (CLI) | payer OTHER, SELFPAY ==
[2024-12-15 11:09] LABS: Lyme Scn Total Ab w/Rflx REF LAB
[2024-12-15 12:32] LABS: CRP < 3.00 mg/L (0.0-3.0)
[2024-12-19 15:07] LABS: ANTINUCLEAR ANTIBODIES DIRECT Negative (Negative); PROGESTERONE 0.6 ng/mL (.)
== END | disposition home or self-care (01) ==
LOC: LAB 10:56
PROVIDERS: PCP Nurse Practitioner Family; Referring Provider Specialist; Visit Provider Specialist
DX: E28.8 Other ovarian dysfunction (principal); M79.10 Myalgia, unspecified site
CPT/HCPCS: 36415; 81374; 82670; 82672; 84144; 84403; 85652; 86038; 86140; 86200; 86431; 86618

== ENCOUNTER → 2024-12-22 | Outpatient (CLI) | payer OTHER, SELFPAY ==
--- NOTE | 2024-12-22 16:28 | US_ITS ---
PROCEDURE: THYROID 12/22/2024 REASON FOR EXAM: ENLARGED THYROID TECHNIQUE: Procedure Code: USTHY Modality: US Procedure: THYROID COMPARISON: None FINDINGS: Right thyroid lobe size: 5.3 cm x 1.4 cm 1.4 cm Left thyroid lobe size: 4.5 cm 1.5 cm 1.3 cm Isthmus: 0.2 cm Background parenchymal echotexture is homogeneous. Nodules: No thyroid nodules seen. US/Thyroid IMPRESSION: Enlargement of the right lobe of the thyroid. No thyroid nodule seen. RECOMMENDATION: Based on most suspicious nodule. Nodule size = largest diameter Only evaluate nodule if =>5 mm. Growth > 20% in 2 dimensions = worsening. Follow up to 4 nodules. Recommend biopsy for no more than 2 nodules. Reading Location: [id number]
== END | disposition home or self-care (01) ==
LOC: US 16:27
PROVIDERS: PCP Nurse Practitioner Family; Referring Provider Nurse Practitioner Family; Visit Provider Nurse Practitioner Family
DX: E04.9 Nontoxic goiter, unspecified (principal)
CPT/HCPCS: 76536